=== PATIENT | male | born 1960 | race Caucasian/White ===

== ENCOUNTER 2022-10-07 19:30 | Emergency (ER) | payer MEDICARE, SELFPAY ==
--- NOTE | ~2022-10-07 | XR_ITS ---
EXAMINATION: XR ribs RT 2V w CXR 2V Exam Date/Time: 10/07/2022 19:53 CDT HISTORY: Fall, right lateral rib pain Comparison: None available. RESULT: Lines, tubes, and devices: Bilateral shoulder arthroplasties. Lungs and pleura: Bibasilar scar/atelectasis, otherwise clear. Azygos lobe. Cardiothymic silhouette: Stable. Other: No acute osseous or upper abdominal finding. IMPRESSION: No acute cardiopulmonary process. No acute osseous finding in the right ribs. Reviewed, dictated and finalized at location K.
--- NOTE | ~2022-10-07 | XR_ITS ---
EXAM: XR shoulder RT min 2V DATE: 10/07/2022 20:03 HISTORY: Fall, right shoulder pain . COMPARISON: None available. FINDINGS: Normal mineralization. Right shoulder arthroplasty, no hardware fracture or perihardware l ucency. Punctate metallic debris projecting over the inferior capsule likely post surgical debris. No fracture or dislocation. No lytic or blastic lesion. 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 No erosion or periosteal change. Soft tissues within normal limits. IMPRESSION: No acute osseous finding or hardware related complication in the right shoulder. Reviewed, dictated and finalized at location K. IMPRESSION: No acute osseous finding or hardware related complication in the ri ght shoulder.
[2022-10-07 20:17] VITALS: BP 173/96; PULSE 84; RESP 16; TEMP 36.4; O2SAT 100
[2022-10-07] MEDS: IBUPROFEN 400 MG TABLET 800 MG PO (23:03)
[2022-10-07] MEDS: methocarbamoL 750 MG TABLET 1500 MG PO (23:04)
[2022-10-07] MEDS: HYDROcodone/acetaminophen (*CRX) 5-325 MG TABLET 2 TAB PO (23:04)
--- NOTE | 2022-10-07 23:52 | ED.GENADULT ---
HPI - General Adult General Chief complaint: Fall Stated complaint: fall, right rib and right arm pain Time Seen by Provider: 10/07/22 21:48 History of Present Illness HPI narrative: This is a 62-year-old male with history of multiple shoulder replacements presenting ED after a fall. Patient was walking to his bathroom when he slipped and fell landing on the side of his tub. He landed on his right ribcage and right shoulder. Since then he has had pain over the rib cage and pain with deep inspirations. He does not feel short of breath. He also has pain on the right shoulder. He has had multiple reconstructive surgeries on that shoulder. He has not taken anything for pain control. No head injuries. Related Data Allergies Allergy/AdvReac Type Severity Reaction Status Date / Time No Known Allergies Allergy Verified 10/07/22 19:30 Exam Narrative: APPEARANCE: No apparent distress. Head: atraumatic. EYES: EOMI, NOSE: Atraumatic NECK: Trachea midline RESPIRATORY: No increased rate of breathing CARDIOVASCULAR: RRR, ABDOMINAL: Non-distended MUSCULOSKELETAl: Focal exam of the right upper extremity revealed no deformities or bruising. Radial and Ulnar pulses are intact. Cap refill <2 seconds. Radial/ulnar/medium nerve function intact. NEURO: Alert. Moving 4/4 extremities SKIN:: Warm, dry. Normal color PSYCHIATRIC: Normal affect Course Vital Signs Vital signs: Vital Signs Temperature 97.6 F 10/07/22 20:17 Pulse Rate 84 10/07/22 20:17 Respiratory Rate 16 10/07/22 20:17 Blood Pressure 173/96 H 10/07/22 20:17 Pulse Oximetry 100 10/07/22 20:17 Oxygen Delivery Room Air 10/07/22 20:17 Temperature 97.6 F 10/07/22 20:17 Pulse Rate 84 10/07/22 20:17 Respiratory Rate 16 10/07/22 20:17 Blood Pressure 173/96 H 10/07/22 20:17 Pulse Oximetry 100 10/07/22 20:17 Oxygen Delivery Room Air 10/07/22 20:17 Medical Decision Making [facility] Narrative Medical decision making narrative: -Presentation: 62-year-old male presenting with right shoulder and right rib pain after fall. 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 X-ray of the right shoulder showed previous hardware but no evidence of acute osseous injury. Dx tests considered but not ordered: -Procedures: -Interventions: Atkinson 5 mg x 2, Motrin, Robaxin -Shared decision making / Disposition: upon re-evaluation patient was feeling better. He will be discharged with pain medication and incentive spirometer. He will be given return precautions. -RX Motrin, Tylenol, Robaxin Vital Signs Vital Signs: Vital Signs Temperature 97.6 F 10/07/22 20:17 Pulse Rate 84 10/07/22 20:17 Respiratory Rate 16 10/07/22 20:17 Blood Pressure 173/96 H 10/07/22 20:17 Pulse Oximetry 100 10/07/22 20:17 Oxygen Delivery Room Air 10/07/22 20:17 Temperature 97.6 F 10/07/22 20:17 Pulse Rate 84 10/07/22 20:17 Respiratory Rate 16 10/07/22 20:17 Blood Pressure 173/96 H 10/07/22 20:17 Pulse Oximetry 100 10/07/22 20:17 Oxygen Delivery Room Air 10/07/22 20:17 Discharge Plan Discharge Clinical Impression: Injury of shoulder, Contusion of rib Patient Disposition: Home, Self-Care Condition: Stable Instructions: Antibiotic Form, Shoulder Pain (ED), Rib Contusion (ED) Additional Instructions: You were seen in the emergency department after a fall. You have bruises on your ribs and shoulders Pleas
[2022-10-08 00:20] VITALS: BP 170/100; PULSE 83; RESP 18
== END 2022-10-08 00:21 | disposition home or self-care (01) ==
PROVIDERS: Emergency Provider Emergency Medicine; PCP Internal Medicine
DX: S20.211A Contusion of right front wall of thorax, initial encounter (principal); S49.91XA Unspecified injury of right shoulder and upper arm, initial encounter; W01.198A Fall on same level from slipping, tripping and stumbling with subsequent striking against other object, initial encounter
CPT/HCPCS: 71046; 71100; 73030; 99283; 99284; A9270

== ENCOUNTER 2025-02-24 20:09 | Emergency (ER) | payer MEDICARE, MEDICAID, SELFPAY ==
--- OUTSIDE RECORDS SUMMARY | 2025-02-22 20:52 | XMS_ITS | Encounter Summary ---
Author Organization [facility] Address [address] [place] [address] Care Team Providers Care Double End Sewer Name Role Phone Foreign Oh MD Unavailable [phone] Ghanshyam Nelson MD Primary Care Provider Reason for Visit * Reason Comments Imaging Pt BIBSelf for imagi ng/wrapping of LLE. Pt is s/p surgery of LLE for fracture 3 weeks ago and states he got it wet in shower. His home health nurse spoke to who wants him to have imaging and re-wrap done. Pt has no other complaint att. He presents A&O4, in WC, and on RA. Encounter Details Date Type Department Care Team (Late st Contact Info) Description 02/22/2025 8:52 PM CDT - 02/23/2025 12:02 AM CDT Emergency [facility] EMERGENCY DEPARTMENT [address] [place] [id number] Left leg pain Discharge Disposition: Left Against Medical Advice/Discontinued Care Social History Tobacco Use Types Packs/Day Years Used Date Smoking Tobacco: Every Day Cigarettes 0.5 40 Smokeless Tobacco: Never Alcohol Use Standard Drinks/Week Comments Yes 0 (1 standard drink = 0.6 oz pur e alcohol) occ OASIS D0700: Social Isolation Answer Da te Recorded Frequency of experiencing loneliness or isolatio n Never 08/26/2023 OASIS A1250: Transportation Answer Date Recorded Lack of Transportation (Medical) No 08/26/2023 Lack of Transportation (Non-Medical) No 08/26/2023 Patient Unable or Declines to Respond No 08/26/2023 OASIS B1300: Health Literacy Answer Morris e Recorded Frequency of needing help to read materials from doctor or pharmacy Never 08/26/2023 AUDIT-C Answer Date Recorded Q1: How often do you have a drink containing alc ohol? Monthly or less 01/31/2025 Q2: How many drinks containi ng alcohol do you have on a typical day when you are drinking? 1 or 2 01/31/2025 Q3: How often do you have si x or more drinks on one occasion? Never 01/31/2025 Overall Financial Resource Strain (CARDIA) Answe r Date Recorded How hard is it for you to pa y for the very basics like food, housing, medical care, and heating? Somewhat hard 01/31/2025 [facility] Occupat ional [facility] - Occupational Stress Questionnaire Answer Date Recorded Do you feel stress - tense, restless, nervous, or anxious, or unable to sleep at night because your mind is troubled all the time - these days? Only a little 01/31/2025 Hunger Vital Sign Answer Date Recorded Within the past 12 months, y ou worried that your food would run out before you got the money to buy more. Never true 02/01/20 Within the past 12 months, t he food you bought just didn't last and you didn't have money to get more. Never true 01/31/2025 PRAPARE - Transportation Answer Date Re corded In the past 12 months, has l ack of transportation kept you from medical appointments or from getting medications? No 01/08 In the past 12 months, has l ack of transportation kept you from meetings, work, or from getting things needed for daily living? No 01/31/2025 Housing Stability Vital Sign Answer Morris e Recorded In the last 12 months, was t here a time when you were not able to pay the mortgage or rent on time? No 07/26/2023 In the last 12 months, how many places have you lived? 1 07/26/2023 In the last 12 months, was t here a time when you did not have a steady place to sleep or slept in a usp (including now)? No 07/26/2023 Housing Stability Vital Sign Answer Morris e Recorded In the last 12 months, was t here a time when you were not able to pay the mortgage or rent on time? No 01/31/2025 In the past 12 months, how m any times have you moved where you were living? 0 01/31/2025 At any time in the past 12 m [facility], were you homeless or living in a usp (including now)? 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 Answer Date of Assessment Author No 01/31/2025 5:14 AM CDT Marleen Reveles RN * Is person blind or have serious difficulty seeing? Answer Date of Assessment Author No 01/31/2025 5:14 AM CDT Marleen Reveles RN * Does person have serious difficulty walking/climbing stairs? Answer Date of Assessment Author Yes 01/31/2025 5:14 AM CDT Marleen Reveles RN * Does person have difficulty dressing/bathing? Answer Date of Assessment Author No 01/31/2025 5:14 AM CDT Marleen Reveles RN * Does person have difficulty doing errands alone? Answer Date of Assessment Author No 01/31/2025 5:14 AM CDT Marleen Reveles RN documented as of this encounter Mental Status * Does person have difficulty concentrating/remembering/making decisions? Answer Entry Date Author No 01/31/2025 5:14 AM CDT Marleen Reveles RN documented in this encounter Medications at Time of Discharge acetaminophen (Tylenol) 500 MG tablet Take 1 (one) tablet to 2 (two) tablets by mouth every 6 hours as needed for Fever or Pain Maximum allowable Acetaminophen amount = 4 Grams (4000 mg) / 24 hours. 100 tablet 2 08/14/2023 amLODIPine (Norvasc) 5 MG tabletIndication s:Hypertension, unspecified type Take 1 (one) tablet by mouth once daily for 90 days 30 tablet 2 02/21/2025 apixaban (Eliquis) 2.5 MG tablet Take 1 (one) tablet by mouth 2 times daily for 35 days 02/04/2025 losartan (Cozaar) 50 MG tablet Take 1 (one) tablet by mouth once daily 30 tablet 2 08/06/2023 methocarbamol (Robaxin) 750 MG tablet Take 1 (one) tablet by mouth every 8 hours as needed for Muscle Spasms 12 tablet 03/31/2024 oxyCODONE, immediate release, (Roxicodone) 5 MG tabletIndication s:Acute Pain Take 1 (one) tablet by mouth every 4 hours as needed Reasons: Acute Pain 12 tablet 02/21/2025 tamsulosin (Flomax) 0.4 MG capsule Take 1 (one) capsule by mouth once daily At the same time every day after a meal. traZODone (Desyrel) 50 MG tablet Take 1 (one) tablet by mouth once daily as needed vitamin D3 (Cholecalciferol ) 25 MCG (1000 UNITS) tablet Take 2 (two) tablets by mouth once daily 02/05/2025 documented as of this encounter ED Notes * Sylvester Urbano - 02/22/2025 8:50 PM CDT Pt came to triage saying he wants to leave due to wait times. AMA form signed and uploaded. * Marsha Rivera PA-C - 02/22/2025 7:23 PM CDT Medical Screening Exam 02/22/2025 7:23 PM Provider contact with the patient Balbir Chua CC: Imaging (Pt BIBSelf for imaging/wrapping of LLE. Pt is s/p surgery of LLE for fracture 3 weeks ago and states he got it wet in shower. His home health nurse spoke to who wants him to have imaging and re-wrap done. Pt has no other complaint att. He presents A&O4, in WC, and on RA. ) Chief complaint narrative was entered by triage nurse, not by provider Provider in Triage HPI: Balbir Chua is a 64 year old male PMH as noted below who presents with need for imaging. Patient had previous left tib-fib fracture 3 weeks ago and states earlier today hegot his dressing wet while taking a shower. He was told to come to the ER for further evaluation. Denies any new injury or trauma. Denies any new or worsening pain or symptoms. Limited Chart History: Past Medical History[1] Past Surgical History[2] Medications[3] Allergies[4] PCP: Ghanshyam Nelson MD (Above may be pending completion) Primary System Noted in HPI. All other systems reviewed and are negative. Vital Signs reviewed in Triage BP 146/94 (BP Location: Left arm, Patient Position: Sitting) Pulse 93 Temp 98.8 ??F (37.1 ??C) (Temporal) Resp 16 SpO2 97% Pertinent Physical Findings: Constitutional: vitals as above, No acute distress, nontoxic Head: normocephalic, without trauma Eyes:conjunctiva clear ENT: no rhinorrhea Neck: neck supple, Resp: respirations even and unlabored CV: Heart RRR Abd: Soft, Nontender Skin: warm, dry, color normal for ethnicity MSK: in wheelchair, left lower extremity in Har[place] wrap and cast Neuro: A&O x 3, , Speech clear and appropriate Psych: Normal affect; oriented to time, place and person Complete physical exam is limited due to patient sitting in up right position in chair MDM: I have reviewed the lab and imaging resulted ordered during this visit and available at the time ofthis note. Triage notes and available nursing notes reviewed. Previous medical record reviewed whenavailable. Management options include but not limited to: physical exam, laboratory testing, discussion with other providers. Clinical Impression: 1. Imaging Based on the Medical Screening Exam performed and diagnostic tests at this time, further evaluationis indicated and will be performed. Patient will be transferred to a main ED room when one is available and care will be transferred to ER provider. Marsha Rivera PA-C [1] Past Medical History: Diagnosis Date Chronic low back pain Enlarged prostate Essential (primary) hypertension Essential hypertension Neuropathy feet [2] Past Surgical History: Procedure Laterality Date Back Surgery DEBRIDEMENT Left 01/31/2025 Left; IRRIGATION/DEBRIDEMENT OPEN TIBIA OTHER SURGERY neck surgery SHOULDER PROCEDURE/SURGERY Bilateral Thoracotomy Left 07/29/2023 Left; Left Thoracotomy, Left Chest Hernia Repair Thoracotomy N/A 03/30/2024 N/A; LEFT INTERCOSTAL HERNIA REPAIR VIA THORACOTOMY TIBIAL SHAFT FRACTURE REPAIR WITH JAGUAR Left 01/31/2025 Left; INTRAMEDULLARY (IM) NAILING TIBIA [3] No current facility-administered medications for this encounter. Current Outpatient Medications Medication Sig Dispense Refill acetaminophen (Tylenol) 500 MG tablet Take 1 (one) tablet to 2 (two) tablets by mouth every 6 hoursas needed for Fever or Pain Maximum allowable Acetaminophen amount = 4 Grams (4000 mg) / 24 hours. 100 tablet 2 amLODIPine (Norvasc) 5 MG tablet Take 1 (one) tablet by mouth once daily for 90 days 30 tablet 2 apixaban (Eliquis) 2.5 MG tablet Take 1 (one) tablet by mouth 2 times daily for 35 days losartan (Cozaar) 50 MG tablet Take 1 (one) tablet by mouth once daily 30 tablet 2 methocarbamol (Robaxin) 750 MG tablet Take 1 (one) tablet by mouth every 8 hours as needed for Muscle Spasms 12 tablet 0 oxyCODONE, immediate release, (Roxicodone) 5 MG tablet Take 1 (one) tablet by mouth every 4 hours as needed Reasons: Acute Pain 12 tablet 0 tamsulosin (Flomax) 0.4 MG capsule Take 1 (one) capsule by mouth once daily At the same time every day after a meal. traZODone (Desyrel) 50 MG tablet Take 1 (one) tablet by mouth once daily as needed vitamin D3 (Cholecalciferol) 25 MCG (1000 UNITS) tablet Take 2 (two) tablets by mouth once daily [4] No Known Allergies * Mavis Nascimento RN - 02/22/2025 7:21 PM CDT Pt BIBSelf for imaging/wrapping of LLE. Pt is s/p surgery of LLE for fracture 3 weeks ago and states he got it wet in shower. His home health nurse spoke to DR who wants him to have imaging and re-wrap done. Pt has no other complaint att. He presents A&O4, in WC, and on RA. Past Medical History[1] [1] Past Medical History: Diagnosis Date Chronic low back pain Enlarged prostate Essential (primary) hypertension Essential hypertension Neuropathy feet documented in this encounter Plan of Treatment Upcoming Encounters Date Type Department Care Team (Late st Contact Info) Description 03/22/2025 9:15 AM CDT Office Visit [facility] - Orthopedics [address] [place] [address], [place] [id number] Leonel Barron, [address] [place] [address] [place] [address] documented as of this encounter Procedures Procedure Name Priority Date/Time Associated Diagnosis Comments XR TIBIA FIBULA LEFT 2VW STAT 02/22/2025 7:57 PM CDT Left leg pain documented in this encounter Results * XR TIBIA FIBULA LEFT 2VW (02/22/2025 7:57 PM CDT) Anatomical Region Laterality Modality Lower Extremity Digital Radiogra phy 02/22/2025 8:06 PM CDT Narrative 02/22/2025 9:38 PM CDT PROCEDURE: XR TIBIA FIBULA LEFT 2VW, DATE/TIME OF EXAM: 02/22/2025 7:57 PM, LOCATION [facility] INDICATION: M79.605: Left leg pain ADDITIONAL CLINICAL INFORMATION: Ordering Provider Reason For Exam: ro fx vs other Technologist Note: Additional: COMPARISON: Tibia-fibula radiographs 01/30/2025 FINDINGS/impression: Overlying cast obscures soft tissue detail. Intramedullary nail is visualized in the tibia with improved fracture fragment alignment from prior. Hardware appears intact. Unchanged alignment of displaced left fibular diaphyses fracture. No acute fractures identified. Report dictated by Eileen Pate MD, MD (administration vice president). > Dictated by Eileen Pate MD 02/22/2025 8:06 PM > Dictated by Perinatal Nurse IKalyn MD have personally reviewed and interpreted this examination/study. > Interpreting Provider: Kalyn Evangelista MD on 02/22/2025 9:38 PM Procedure Note Kalyn Evangelista MD - 02/22/2025 PROCEDURE: XR TIBIA FIBULA LEFT 2VW, DATE/TIME OF EXAM: 02/22/2025 7:57 PM, LOCATION [facility] INDICATION: M79.605: Left leg pain ADDITIONAL CLINICAL INFORMATION: Ordering Provider Reason For Exam: ro fx vs other Technologist Note: Additional: COMPARISON: Tibia-fibula radiographs 01/30/2025 FINDINGS/impression: Overlying cast obscures soft tissue detail. Intramedullary nail is visualized in the tibia with improved fracture fragment alignment from prior. Hardware appears intact. Unchangedalignment of displaced left fibular diaphyses fracture. No acute fractures identified. Report dictated by Eileen Pate MD, MD (administration vice president). > Dictated by Eileen Pate MD 02/22/2025 8:06 PM > Dictated by Perinatal Nurse Kalyn Gastelum MD have personally reviewed and interpreted this examination/study. > Interpreting Provider: Kalyn Evangelista MD on 59:38 PM Marsha Rivera PA-C DIAGNOSTIC IMAGING ORDERABL ES Final Result documented in this encounter Visit Diagnoses Diagnosis Left leg pain Pain in limb documented in this encounter Care Teams Double End Sewer Relationship Specialty Start Date End Date Ghanshyam Nelson MD [address] [facility] [address] [place] [phone] PCP - General Internal Medicine 02/21/25 Foreign Oh MD [address] [place] [address] Internal Medicine 01/24/25 documented as of this encounter
--- NOTE | ~2025-02-24 | XR_ITS ---
EXAMINATION: XR tibia fibula LT 2V DATE: 02/25/2025 00:22 INDICATION: Splinter revision needed post recent tibial fracture TECHNIQUE: Anteroposterior and lateral views of the left tibia and fibula were obtained. COMPARISON: None. FINDINGS: Antegrade intramedullary deion with proximal and distal interlocking screw fixation of the left tibia spanning a transverse fracture of the junction mid to distal diaphysis. There is an additional plain screw fixation along the anterior cortex. Alignment appears near-anatomic aside from displacement of a couple small bone fragment arising from a defect along the posterior cortex. There is an additional mildly comminuted fractures of the distal fibular diaphysis with one half shaft width anterior and medial displacement. No other fractures identified. Joint space at the left knee, ankle and visualized mid and hindfoot appear relatively preserved. Small Achilles calcaneal spur. Splinting material on the posterolateral aspect of the left calf and ankle. IMPRESSION: 1. Near-anatomic alignment of internally fixed fracture of the mid to distal left tibial diaphysis. 2. One half shaft width anteromedial displacement of an en face 6 distal diaphyseal fracture of the left fibula. Reviewed, dictated and finalized at location A. IMPRESSION: 1. Near-anatomic alignment of internally fixed fracture of the mid to distal le ft tibial diaphysis. 2. One half shaft width anteromedial displacement of an en face 6 distal diaphy seal fracture of the left fibula.
--- OUTSIDE RECORDS SUMMARY | 2025-02-24 20:13 | XMS_ITS | Clinical Summary ---
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
--- OUTSIDE RECORDS SUMMARY | 2025-02-24 20:13 | XMS_ITS | Clinical Summary ---
Author Organization [facility] Address [address] [place] [address] Care Team Providers Care Mine Environmental Engineer Name Role Phone Unavailable Primary Care Provider Unavailabl e Allergies No known active allergies Medications albuterol HFA (PROVENTIL HFA;VENTOLIN HFA) 90 mcg/actuation inhaler Inhale 2 puffs every 4 (four) hours if needed. 07/23/2023 Active naproxen (NAPROSYN) 500 mg tablet Take 500 mg by mouth in the morning and 500 mg in the evening. Take with meals. 07/23/2023 Active losartan (COZAAR) 50 mg tablet Take 50 mg by mouth 1 (one) time each day. 08/06/2023 Active Active Problems Problem Noted Date Diagnosed Date Chronic back pain 07/26/2023 Hypertension 07/26/2023 Hypophosphatemia 07/26/2023 Tobacco use 07/26/2023 Herniation of left lung 07/25/2023 Social History Tobacco Use Types Packs/Day Years Used Date Smoking Tobacco: Never Assessed Sex and Gender Information Value Date Recorded Sex Assigned at Not on file Legal Sex Male 12:06 PM PDT Gender Identity Not on file Sexual Orientation Not on file Last Filed Vital Signs Vital Sign Reading Time Taken Comments Blood Pressure 160/99 10/14/2023 11:54 AM CDT Pulse - - Temperature - - Respiratory Rate - - Oxygen Saturation - - Inhaled Oxygen Concentration - - Weight - - Height - - Body Mass Index - - Plan of Treatment Health Maintenance Due Date Last Done Comments Dental Oral Exam 1959 Dental Prophylaxis 1959 Dental X-Ray: Bitewings 1959 Dental X-Ray: Full Mouth 1959 Dental X-Ray: Panoramic 10/14/2026 10/14/2023, 02/12 FIT-DNA Discontinued 10/13/2022 Procedures Procedure Name Priority Date/Time Associated Diagnosis Comments PANORAMIC RADIOGRAPHIC IMAGE Routine 02/12/2023 2:45 PM CDT from Last 3 Months or Most Recently Relevant to Health Maintenance [place] [address]
--- OUTSIDE RECORDS SUMMARY | 2025-02-24 20:13 | XMS_ITS | Clinical Summary ---
Author Organization [facility] Address [address] [place] [address] Care Team Providers Care Forepart Reducer Name Role Phone Unavailable Primary Care Provider Unavailabl e Allergies No known active allergies Medications amLODIPine (NORVASC) 5 MG tablet Take 1 tablet (5 mg total) by mouth in the morning. 30 tablet 5 Active apixaban (ELIQUIS) 2.5 MG tablet tabletIndication s:Deep Vein Thrombosis Prophylaxis Take 1 tablet (2.5 mg total) by mouth in the morning and 1 tablet (2.5 mg total) before bedtime. Do all this for 55 doses. Indications: Treatment to Prevent Deep Vein Thrombosis. 55 tablet 5 03/12/20 25 Active cholecalciferol (VITAMIN D3) 25 MCG (1000 UT) tablet Take 2 tablets (2,000 Units total) by mouth in the morning. 60 tablet 5 Active losartan (COZAAR) 25 MG tablet Take 1 tablet (25 mg total) by mouth in the morning. 30 tablet 5 Active methocarbamol (ROBAXIN) 500 MG tablet Take 1 tablet (500 mg total) by mouth 3 (three) times a day as needed for muscle spasms. 30 tablet 5 Active nicotine (NICODERM CQ) 14 MG/24HR Place 1 patch (14 mg total) on the skin daily as needed (nicotine withdrawal). 5 Active polyethylene glycol (MIRALAX) 17 g packet Take 17 g by mouth in the morning and 17 g before bedtime. 5 Active tamsulosin (FLOMAX) 0.4 MG capsule Take 1 capsule (0.4 mg total) by mouth After Breakfast. 30 capsule 5 Active traZODone (DESYREL) 50 MG tablet Take 1 tablet (50 mg total) by mouth nightly. 30 tablet 5 Active oxyCODONE (ROXICODONE) 5 MG immediate release tabletIndication s:Acute Pain Take 1 tablet (5 mg total) by mouth every 6 (six) hours as needed for moderate pain (second line for moderate pain) for up to 7 days Indications: Acute Pain. Max Daily Amount: 20 mg 28 tablet 5 02/19/20 25 Active Problems Problem Noted Date Diagnosed Date Traumatic injury 02/04/2025 Encounters Date Type Department Care Team Description 02/09/2025 Plan of Care Documentation [address] [address] 02/04/2025 5:26 PM CDT - 02/12/2025 12:19 PM CDT Hospital Encounter [address] [address] Kamran Barfield MD Traumatic injury <Subsequent> (Primary Dx) Discharge Disposition: Home under care of Home Health Org from Last 3 Months Social History Tobacco Use Types Packs/Day Years Used Date Smoking Tobacco: Every Day Cigarettes Tobacco Cessation:Ready to Q uit: Not Asked; Counseling Given: Not Answered Alcohol Use Standard Drinks/Week Comments Not Asked 0 (1 standard drink = 0.6 oz pur e alcohol) [facility] Utilities Answer Date Recorded In the past 12 months has [employer], or water [employer] threatened to shut off services in your home? No 02/06/2025 Social Connection and Isolat ion Panel [NHANES] Answer Date Recorded In a typical week, how many times do you talk on the phone with family, friends, or neighbors? More than three times a week 02/06/2025 How often do you get togethe r with friends or relatives? More than three times a week 02/06/2025 How often do you attend [facility] or rastafarian services? Never 02/06/2025 Do you belong to any clubs o r organizations such as confucianist groups, unions, fraternal or athletic groups, or school groups? No 02/06/2025 How often do you attend meet ings of the clubs or organizations you belong to? Never 02/06/2025 Are you , , di vorced, , never , or living with a partner? Never 02/06/2025 Overall Financial Resource Strain (CARDIA) Answe r Date Recorded How hard is it for you to pa y for the very basics like food, housing, medical care, and heating? Not hard at all 02/06/2025 [facility] - Occupational Stress Questionnaire Answer Date Recorded Do you feel stress - tense, restless, nervous, or anxious, or unable to sleep at night because your mind is troubled all the time - these days? Not at all 02/12/2025 Hunger Vital Sign Answer Date Recorded Within the past 12 months, y ou worried that your food would run out before you got the money to buy more. Never true 02/07/20 25 Within the past 12 months, t he food you bought just didn't last and you didn't have money to get more. Never true 02/06/2025 Housing Stability Vital Sign Answer Morris e Recorded In the last 12 months, was t here a time when you were not able to pay the mortgage or rent on time? No 02/06/2025 In the past 12 months, how m any times have you moved where you were living? 0 02/06/2025 At any time in the past 12 m onths, were you homeless or living in a fci (including now)? No 02/06/2025 Domestic Abuse Assessment Answer Date R ecorded Do you feel safe in your relationships at home? Yes 02/04/2025 Physical Abuse Denies 02/04/2025 HRSN Domestic Abuse - Type of Abuse Not on file 02/04/2025 HRSN Domestic Abuse - Time Frame Not on file 02/04/2025 HRSN Domestic Abuse - Signs and Symptoms Not on file 02/04/2025 Verbal Abuse Denies 02/04/2025 HRSN Domestic Abuse - Reported To Not on file 02/04/2025 SM SDOH Transportation Source Answer Da te Recorded Has lack of transportation k ept you from medical appointments or from getting medications? No 02/10/2025 Has lack of transportation k ept you from meetings, work, or from getting things needed for daily living? No 02/10/2025 HRSN Depression PHQ-2 Answer Date Recor ded Feeling down, depressed, or hopeless 0 02/12/2025 Little interest or pleasure in doing things 00 02/12/2025 Sex and Gender Information Value Date Recorded Sex Assigned at Not on file Legal Sex Male 11:43 AM EDT Gender Identity Not on file Sexual Orientation Not on file Last Filed Vital Signs Vital Sign Reading Time Taken Comments Blood Pressure 132/86 02/12/2025 8:14 AM CDT Pulse 70 02/12/2025 8:14 AM CDT Temperature 36.7 C (98.1 F) 02/12/2025 8:14 AM CDT Respiratory Rate 18 02/12/2025 8:14 AM CDT Oxygen Saturation 95% 02/12/2025 8:14 AM CDT Inhaled Oxygen Concentration - - Weight 108.9 kg (240 lb) 02/04/2025 7:39 PM CDT Height 188 cm (6' 2) 02/04/2025 7:39 PM CDT Body Mass Index 30.81 02/04/2025 7:39 PM CDT Plan of Treatment Health Maintenance Due Date Last Done Comments CT Colonography 1959 Colonoscopy 1959 Colorectal Cancer Screening 1959 FIT-DNA (Cologuard) 1959 FIT 1959 FOBT 1959 Sigmoidoscopy 1959 Annual Visit Topic 1960 MMR Vaccines (1 of 1 - Stand jeannnie series) 1960 Hepatitis C Screening 1977 Pneumococcal Vaccine: 65+ Ye ars (1 of 4 - PCV) 1978 PSA Test 2014 Abdominal Aortic Aneurysm (A AA) Screening 2024 DTaP/Tdap/Td Vaccines (2 - T d or Tdap) 01/30/2035 01/30/2025 HIB Vaccines Aged Out No longer eligi ble based on patient's age to complete this topic HPV Vaccines Aged Out No longer eligi ble based on patient's age to complete this topic Hepatitis A Vaccines Aged Out No long er eligible based on patient's age to complete this topic Hepatitis B Vaccines Aged Out No long er eligible based on patient's age to complete this topic IPV Vaccines Aged Out No longer eligi ble based on patient's age to complete this topic Meningococcal Vaccine Aged Out No oliva rae eligible based on patient's age to complete this topic Procedures Procedure Name Priority Date/Time Associated Diagnosis Comments XR ABDOMEN 1 VW Routine 02/07/2025 9:58 PM CDT URINALYSIS WITH REFLEX TO CULTURE Routine 02/04/2025 11:07 PM CDT XR CHEST 1 VW Routine 02/04/2025 10:42 PM CDT BLOOD CULTURE Routine 02/04/2025 9:50 PM CDT BASIC METABOLIC PANEL STAT 02/04/2025 9:44 PM CDT CBC WITH AUTO DIFFERENTIAL STAT 02/04/2025 9:44 PM CDT BLOOD CULTURE Routine 02/04/2025 9:44 PM CDT WOUND OSTOMY EVAL AND TREAT Routine 02/04/2025 7:25 PM CDT from Last 3 Months Results * XR abdomen 1 vws (02/07/2025 9:58 PM CDT) Anatomical Region Laterality Modality Body Computed Radiogr aphy Narrative 02/08/2025 8:21 AM CDT NARRATIVE: PROCEDURE: XR ABDOMEN KUB DATE/TIME OF EXAM: 02/07/2025 9:58 PM INDICATION: constipation. 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 There is levoscoliosis noted. No acute fracture or dislocation is seen. Multiple calcific densities are seen in the left abdomen which may represent renal stones or other soft tissue calcification. CT could be obtained. Large amount of stool seen in the colon. Correlation for underlying constipation. Edited by Lashell Varela on 02/08/2025 8:20 AM > Interpreting Provider: Fish Mijares MD on 02/08/2025 8:21 AM Procedure Note System, Provider Not In - 02/08/2025 NARRATIVE: PROCEDURE: XR ABDOMEN KUB DATE/TIME OF EXAM: 02/07/2025 9:58 PM INDICATION: constipation. 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 There is levoscoliosis noted. No acute fracture or dislocation is seen. Multiple calcific densities are seen in the left abdomen which may represent renal stones or other soft tissue calcification. CT could be obtained. Large amount of stool seen in the colon. Correlation for underlying constipation. Edited by Lashell Varela on 02/08/2025 8:20 AM > Interpreting Provider: Fish Mijares MD on 02/08/2025 8:21 AM David Mc MD IMG DIAGNOSTIC IMAGING ORDERABLE S Final Result * (ABNORMAL) Urinalysis with reflex to culture (02/04/2025 11:07 PM CDT) Color, Urine Yellow Yellow, Straw [facility] Clarity, Urine Turbid(A) Clear [facility] Glucose, Ur Normal Normal [facility] Bilirubin Urine Negative Negative [facility] Ketones, urine Negative Negative [facility] Specific gravity 1.013 1.005 - 1.030 [facility] RBC, UA Negative Negative [facility] pH, Urine 7.0 5.0 - 8.0 [facility] Protein, Ur Negative Negative [facility] Urobilinogen, Urine Normal Normal mg/dL [facility] NITRITE Negative Negative [facility] Urine Leukocyte Esterase Negative Negative [facility] REFLEX STATUS Culture not indicated [facility] Urine Microscopy UA Urine microscopy not indicated [facility] Urine 02/04/2025 11:0 7 PM CDT 02/04/2025 11:21 PM CDT Narrative [facility] - 02/04/2025 11:39 PM CDT 101F- Temp Indications->Fever > 100.4F David Mc MD LAB URINE ORDERABLES Final Resul t [facility] [address] [place] [address] * XR chest 1 vws (02/04/2025 10:42 PM CDT) Anatomical Region Laterality Modality Body Computed Radiogr aphy Narrative 02/05/2025 8:55 AM CDT NARRATIVE: PROCEDURE: XR CHEST 1VW PORTABLE DATE/TIME OF EXAM: 02/04/2025 10:42 PM CLINICAL INFORMATION: None relevant/not provided if blank. Indication: Temp- 101F Additional History: Findings/impression: No focal consolidation is seen. Upper mediastinal contours appear somewhat prominent but stable when compared with prior study. CT could be obtained for further evaluation if warranted. No pleural effusion or pneumothorax seen. Bilateral shoulder arthroplasties noted. Heart is slightly prominent likely related to AP projection. > Interpreting Provider: Fish Mijares MD on 02/05/2025 8:55 AM Procedure Note System, Provider Not In - 02/05/2025 NARRATIVE: PROCEDURE: XR CHEST 1VW PORTABLE DATE/TIME OF EXAM: 02/04/2025 10:42 PM CLINICAL INFORMATION: None relevant/not provided if blank. Indication: Temp- 101F Additional History: Findings/impression: No focal consolidation is seen. Upper mediastinal contours appear somewhat prominent but stable when compared with prior study. CT could be obtained for further evaluation if warranted. Nopleural effusion or pneumothorax seen. Bilateral shoulder arthroplasties noted. Heart is slightly prominent likely related to AP projection. > Interpreting Provider: Fish Mijares MD on 02/05/2025 8:55 AM us David Mc MD IMG DIAGNOSTIC IMAGING ORDERABLE S Final Result * SINGLE Blood Culture (02/04/2025 9:50 PM CDT) Only the most recent of2 resultswithin the time period is included. Culture No growth day 5 [facility]CRO[facility] Blood (Blood, Venous) 02/04/2025 9:50 PM CDT 02/05/2025 1:19 AM CDT Narrative [facility] - 02/10/2025 1:31 AM CDT Indications:->Fever > 100.4 F us David Mc MD LAB MICROBIOLOGY - GENERAL ORDER CASE Final Result [facility] [address] [place] [address] * (ABNORMAL) CBC WITH AUTO DIFFERENTIAL (02/04/2025 9:44 PM CDT) [facility] WBC 9.7 4.0 - 10.7 x10E9/L [facility] RBC 4.03(L) 4.30 - 5.80 x10E12/L [facility] HGB gm/dL Blood 13.0(L) 13.3 - 17.5 g/dL [facility] Hematocrit 38.4(L) 38.7 - 51.1 % [facility] MCV 95.3 80.0 - 98.0 fL [facility] MCH 32.3 26.7 - 33.6 pg [facility] MCHC 33.9 31.7 - 36.3 g/dL [facility] RDW-CV 12.6 11.3 - 14.8 % [facility] Platelet count 298 150 - 420 x10E9/L [facility] MPV 10.4 7.8 - 11.4 fL [facility] Neutrophil % 69.3 41.0 - 74.0 % [facility] Lymphocyte % 17.1 17.0 - 47.0 % [facility] Monocytes, % 12.1(H) 3.0 - 11.0 % [facility] Eosinophils % 1.0 0.0 - 7.0 % [facility] Basophil Percent Automated 0.2 0.0 - 1.6 % [facility] Immature Granulocytes 0.3 0.0 - 1.0 % [facility] Neutrophils Absolute 6.70 1.60 - 7.50 x10E9/L [facility] Lymphocyte Absolute 1.65 1.00 - 4.40 x10E9/L [facility] Monocytes 1.17(H) 0.15 - 1.00 x10E9/L [facility] Eosinophil Absolute 0.10 0.00 - 0.60 x10E9/L [facility] Basophils 0.02 0.00 - 0.13 x10E9/L [facility] Blood (Blood, Venous) 02/04/2025 9:44 PM CDT 02/04/2025 11:25 PM CDT David Mc MD LAB BLOOD ORDERABLES Final Resul t Performing Organization Address [facility] de Phone Number [facility] [address] [place] [address] * (ABNORMAL) BASIC METABOLIC PANEL (02/04/2025 9:44 PM CDT) Glucose mg/dL Blood 121(H) 70 - 99 mg/dL [facility] Sodium mmol/L Blood 135(L) 136 - 145 mmol/L [facility] Potassium mmol/L Blood 4.1 3.5 - 5.1 mmol/L [facility] Chloride 104 98 - 107 mmol/L [facility] CO2 23 22 - 29 mmol/L [facility] Calcium mg/dL Blood 8.9 8.4 - 10.4 mg/dL [facility] Anion Gap Blood 8 6 - 16 mmol/L [facility] Bun mg/dL Blood 12 7 - 26 mg/dL [facility] Creatinine 0.69(L) 0.72 - 1.25 mg/dL [facility] EGFRCR CKD-EPI >90 >=90 mL/min/1.7 3 m2 [facility] Comment:Estimated Glomerular Filtration Rate (eGFR) calculated using the CKD-EPI Creatinine Equation (2020), per the National Kidney Foundation and [place] [employer]ph[employer] recommendations. Blood (Blood, Venous) 02/04/2025 9:44 PM CDT 02/04/2025 11:24 PM CDT David Mc MD LAB BLOOD ORDERABLES Final Resul t Performing Organization Address [facility] Co de Phone Number [facility] [address] [place] [address] from Last 3 Months Advance Directives * Full Resuscitation (Latest Code Status on File) Date Activated Date Inactivated Comments 02/04/2025 8:25 PM 02/12/2025 4:46 PM Question Answer Comments I have discussed this order with the patient or his/her surrogate and have received informed consent. Yes
--- OUTSIDE RECORDS SUMMARY | 2025-02-24 20:14 | XMS_ITS | Clinical Summary ---
Author Organization [facility] Address [address] [place] [address] Care Team Providers Care Grouter Helper Name Role Phone Foreign Oh MD Unavailable [phone] Ghanshyam Nelson MD Primary Care Provider Source Comments [facility],non-owned Affiliates and Associated Physician Practices is amultiple site organization consisting of ambulatory clinics and hospital sitesin [place], [place], [place] and [place]. This disclosure is being madepursuant to the Care Everywhere program and may not contain all information available regarding this patient. Last updated 18.[facility] Allergies No known active allergies Medications * Be aware that medications may not be up to date on this document. Alwaysverify current medications with the patient. losartan (Cozaar) 50 MG tablet Take 1 (one) tablet by mouth once daily 30 tablet 2 08/06/19 24 Active acetaminophen (Tylenol) 500 MG tablet Take 1 (one) tablet to 2 (two) tablets by mouth every 6 hours as needed for Fever or Pain Maximum allowable Acetaminophen amount = 4 Grams (4000 mg) / 24 hours. 100 tablet 2 08/14/19 24 Active traZODone (Desyrel) 50 MG tablet Take 1 (one) tablet by mouth once daily as needed Active methocarbamol (Robaxin) 750 MG tablet Take 1 (one) tablet by mouth every 8 hours as needed for Muscle Spasms 12 tablet 03/31/20 24 Active tamsulosin (Flomax) 0.4 MG capsule Take 1 (one) capsule by mouth once daily At the same time every day after a meal. Active apixaban (Eliquis) 2.5 MG tablet Take 1 (one) tablet by mouth 2 times daily for 35 days 02/05/20 25 Active vitamin D3 (Cholecalcifero l) 25 MCG (1000 UNITS) tablet Take 2 (two) tablets by mouth once daily 02/06/20 25 Active amLODIPine (Norvasc) 5 MG tabletIndicatio ns:Hypertension , unspecified type Take 1 (one) tablet by mouth once daily for 90 days 30 tablet 2 02/22/20 25 Active oxyCODONE, immediate release, (Roxicodone) 5 MG tabletIndicatio ns:Acute Pain Take 1 (one) tablet by mouth every 4 hours as needed Reasons: Acute Pain 12 tablet 02/22/20 25 Active albuterol HFA (Proventil; Ventolin; Proair) 108 (90 Base) MCG/ACT inhaler Inhale 2 (two) puffs by mouth every 4 hours as needed 07/23/19 24 025 Discontin ued(List Clean-Up) tamsulosin (Flomax) 0.4 MG capsule Take 1 capsule every day by oral route for 90 days. 03/17/20 24 025 Discontin ued(List Clean-Up) oxyCODONE, immediate release, (Roxicodone) 5 MG tabletIndicatio ns:Acute Pain Take 1 (one) tablet by mouth every 4 hours as needed Reasons: Acute Pain 12 tablet 03/31/20 24 025 Discontin ued(List Clean-Up) senna (Senokot) 8.6 MG tablet Take 1 (one) tablet by mouth 2 times daily 28 tablet 03/31/20 24 025 Discontin ued(List Clean-Up) gabapentin (Neurontin) 300 MG capsule Take 1 (one) capsule by mouth 3 times daily 270 capsule 1 04/16/20 Discontin ued(List Clean-Up) oxyCODONE, immediate release, (Roxicodone) 10 MG tabletIndicatio ns:Osteopenia of spine Take 1 (one) tablet by mouth every 4 hours as needed 02/05/20 025 Discontin ued(List Clean-Up) acetaminophen (Tylenol) 500 MG tablet Take 2 (two) tablets by mouth 3 times daily Maximum allowable Acetaminophen amount = 4 Grams (4000 mg) / 24 hours. 02/05/20 Discontin ued(List Clean-Up) losartan (Cozaar) 25 MG tablet Take 1 (one) tablet by mouth once daily 02/06/20 025 Discontin ued(List Clean-Up) amLODIPine (Norvasc) 5 MG tablet Take 1 (one) tablet by mouth once daily 02/06/20 Discontin ued(Reord er) polyethylene glycol 3350 (Miralax) 17 g packetIndicatio ns:Constipation Take 17 (seventeen) g by mouth once daily Reasons: Constipation 02/06/20 Discontin ued(List Clean-Up) senna (Senokot Extra Strength) 17.2 MG Take 17.2 mg by mouth once daily 02/06/20 Discontin ued(List Clean-Up) Active Problems Problem Noted Date Diagnosed Date Other constipation 02/03/2025 Assessment & Plan (02/04/2025 12:37 PM CDT): -Last BM was prior to admission Cont scheduled MiraLax and Senokot. Added milk of magnesia Added a Suppository. Assessment & Plan (02/03/2025 10:31 AM CDT): Cont scheduled MiraLax and Senokot. Added milk of magnesia Osteopenia 02/02/2025 Assessment & Plan (02/04/2025 12:37 PM CDT): -Cont Vit D supp. -OP referral to bone health clinic was placed. Assessment & Plan (02/03/2025 10:31 AM CDT): -Cont Vit D supp. -OP referral to bone health clinic was placed. Assessment & Plan (02/02/2025 7:27 AM CDT): -Cont Vit D supp. -OP referral to bone health clinic was placed. Osteopenia of multiple sites 02/02/2025 BPH (benign prostatic hyperplasia) 02/02/2025 Assessment & Plan (02/04/2025 12:37 PM CDT): -Cont Flomax Assessment & Plan (02/03/2025 10:31 AM CDT): -Cont Flomax Assessment & Plan (02/02/2025 7:27 AM CDT): -Cont Flomax Benign prostatic hyperplasia without lower urinary tract symptoms 02/02/2025 Intercostal muscle tear, subsequent encounter Hypophosphatemia 07/26/2023 Tobacco use 07/26/2023 Chronic back pain 07/26/2023 Hypertension 07/26/2023 Assessment & Plan (02/04/2025 12:37 PM CDT): Resumed Losartan Started amlodipine Assessment & Plan (02/03/2025 10:31 AM CDT): Resumed Losartan Started amlodipine Assessment & Plan (02/02/2025 7:27 AM CDT): Resumed Losartan Herniation of left lung 07/25/2023 Neuropathy Overview (02/21/2025): feet Resolved Problems Problem Noted Date Diagnosed Date Resolved Date Electrolyte disturbance 02/02/2025 08/02/2025 Assessment & Plan (02/04/2025 12:37 PM CDT): -Replete prn Assessment & Plan (02/03/2025 10:31 AM CDT): -Replete prn Assessment & Plan (02/02/2025 7:28 AM CDT): -replete prn Type I or II open fracture o f shaft of left tibia, unspecified fracture morphology, initial encounter 01/30/2025 02/04/2025 Assessment & Plan (02/04/2025 12:37 PM CDT): -S/P Left tibia/fibula I&D, IMN and ORIF on 01/31 . -Plan for dressing and splint changed today. -NWB to left LE -PTOT-> recommending acute rehab-> pending BM -Will dc on 35 days of DVT prophylaxis. -OP f.u w ortho 2 weeks after dc. Assessment & Plan (02/03/2025 10:31 AM CDT): -S/P Left tibia/fibula I&D, IMN and ORIF on 01/31 . -Plan for dressing and splint changed today. -NWB to left LE -PTOT-> recommending acute rehab-> pending auth. -Will dc on 35 days of DVT prophylaxis. -OP f.u w ortho 2 weeks after dc. Assessment & Plan (02/02/2025 11:18 AM CDT): -S/P Left tibia/fibula I&D, IMN and ORIF on 01/31 . -NWB to left LE -PTOT-> recommending acute rehab-> pending auth. -Will dc on 35 days of DVT prophylaxis. -OP f.u w ortho 2 weeks after dc. Pneumonia 07/26/2023 09/02/2023 Encounters Date Type Department Care Team Description 02/22/2025 8:52 PM CDT - 02/23/2025 12:02 AM CDT Emergency [facility] [address] [place] [address] Left leg pain Discharge Disposition: Left Against Medical Advice/Discontinued Care 02/22/2025 Travel 02/21/2025 8:30 AM CDT Office Visit Transitional Care at [address] [phone] Preston Chavez II, MD Hospital discharge follow-up (Primary Dx); Type I or II open fracture of shaft of left tibia with routine healing, unspecified fracture morphology, subsequent encounter; Type I or II open fracture of shaft of left fibula with routine healing, unspecified fracture morphology, subsequent encounter; On deep vein thrombosis (DVT) prophylaxis; Post-operative pain; Hypertension, unspecified type; Osteopenia, unspecified location; Neuropathy 02/14/2025 Travel 02/14/2025 Telephone Transitional Care at [address] [phone] Shanda Santos, talent acquisition assistant 02/10/2025 Orders Only [facility] - Orthopedics [address] [place] [address], [place] [phone] Leonel Barron DO Type I or II open fracture of shaft of left tibia, unspecified fracture morphology, initial encounter 02/04/2025 6:02 PM CDT - 02/12/2025 12:19 PM CDT Hospital Encounter [address] [address] Kamran Barfield MD General Rehabilitation Discharge Disposition: Home or Self Care 02/04/2025 5:26 PM CDT - 02/12/2025 12:19 PM CDT Hospital Encounter [address] [address] Kamran Barfield MD [facility] Discharge Disposition: Home or Self Care 01/31/2025 11:14 AM CDT Anesthesia Event [facility] [address] [place] [phone] Laura Diana MD Sembell, Evan, MD 01/31/2025 10:06 AM CDT - 01/31/2025 1:35 PM CDT Surgery [facility] [address] [place] [phone] Revak, Leonel J, DO IRRIGATION/DEBRIDEMEN T OPEN TIBIA 01/31/2025 Travel 01/30/2025 8:50 PM CDT - 02/04/2025 5:00 PM CDT Hospital Encounter [facility] [address] [place] [address] Robbi Rodriguez MD Naughton, Daniel J, MD Bitter, Cindy C, MD Heis, Farah, MD Trauma Discharge Disposition: Rehab:Inpatient from Last 3 Months Immunizations Immunization Administration Dates Next Due INFLUENZA VACCINE, TRIV. (AF LURIA, FLUZONE TRIVALENT; 6MO+) (IIV3) 07/06/2019 Covid Moderna primary monovalent 12+ yr 0.5mL ,10/06/2020 INFLUENZA VACCINE, QUADR. (F LUZONE; FLULAVAL; FLUARIX; AFLURIA QUADRIVALENT; 6MO+), 0.5 ML (IIV4) 03/09/2018 PNEUMOCOCCAL PPV VACCINE 12/21/2013 TDAP (7yrs+) 01/30/2025 Social History Tobacco Use Types Packs/Day Years Used Date Smoking Tobacco: Every Day Cigarettes 0.5 40 Smokeless Tobacco: Never Tobacco Cessation:Ready to Q uit: Not Asked; Counseling Given: Not Answered Alcohol Use Standard Drinks/Week Comments Yes 0 [...] medical care, and heating? Somewhat hard 01/31/2025 [facility] [place] [facility] Occupat ional [facility] - Occupational Stress [...] place to sleep or slept in a custodial (including now)? No 07/26/2023 Housing Stability Vital Sign Answer Morris e Recorded In the last 12 months, was t here a time when you were not able to pay the mortgage or rent on time? No 01/31/2025 In the past 12 months, how m any times have you moved where you were living? 0 01/31/2025 At any time in the [facility], were you homeless or living in a custodial (including now)? No 01/31/2025 Sex and Gender Information Value Date Recorded Sex Assigned at Not on file Legal Sex Male 6:01 AM MANAGER BODY Gender Identity Not on file Sexual Orientation Not on file Last Filed Vital Signs Vital Sign Reading Time Taken Comments Blood Pressure 146/94 02/22/2025 7:02 PM CDT Pulse 93 02/22/2025 7:02 PM CDT Temperature 37.1 C (98.8 F) 02/22/2025 7:02 PM CDT Respiratory Rate 16 02/22/2025 7:02 PM CDT Oxygen Saturation 97% 02/22/2025 7:02 PM CDT Inhaled Oxygen Concentration 35% 07/29/2023 8 :43 PM MANAGER BODY Weight 114.8 kg (253 lb) 01/30/2025 8:49 PM CDT Height 182.9 cm (6') 02/21/2025 8:19 AM CDT Body Mass Index 32.48 01/30/2025 8:49 PM CDT Plan of Treatment Upcoming Encounters Date Type Department Care Team (Late st Contact Info) Description 03/22/2025 9:15 AM CDT Office Visit [facility] - [facility]ics [address] [place] [address], [place] [phone] Leonel Barron, [address] [place] [address] [place] [address] Health Maintenance Due Date Last Done Comments COLON MONITORING 1959 COLONOSCOPY - COLON CA SCREENING 1959 CT COLONOGRAPHY - COLON CA SCREENING 1959 FIT - COLON CA SCREENING 1959 FLEX SIG - COLON CA SCREENING 1959 LIPID TESTING 1959 HIV SCREENING 1974 HEPATITIS C SCREENING 04/13/1977 LUNG CANCER SCREENING 2009 ZOSTER VACCINE (1 of 2) 2009 PNEUMOCOCCAL VACCINE 50+ (2 of 2 - PCV) 12/21/2014 12/21/2013 AAA SCREENING 2024 DEPRESSION SCREENING 06/09/2024 MEDICARE AWV CALENDAR YEAR 2024 COVID-19 VACCINE (3 - season) 2025 11/05/2020, 10/06/2020 INFLUENZA VACCINE (#1) 2025 07/06/2019, 2017 COLOGUARD (AGES 45-75) - COLON CA SCREENING 10/13/2025 10/13/2022 Colorectal Cancer Screening 10/13/2025 SCREENING FOR DIABETES 02/05/2028 , 02/03/2025, 02/02/2025, Additional history exists Respiratory Syncytial Virus (RSV) Vaccine Pt: or over 60 yrs (1 - 1-dose 75+ series) 2034 DTAP/TDAP/TD VACCINES (2 - Td or Tdap) 01/30/2035 01/30/2025 HEPATITIS B VACCINE Aged Out No longe r eligible based on patient's age to complete this topic HIB VACCINE Aged Out No longer eligi ble based on patient's age to complete this topic HPV VACCINE Aged Out No longer eligi ble based on patient's age to complete this topic MENINGOCOCCAL (Group B) VACCINE SHARED DECISION-MAKING Aged Out No longer eligible based on patient's age to complete this topic MENINGOCOCCAL GROUPS A/C/Y/W VACCINE Aged Out No longer eligible based on patient's age to complete this topic Medical Devices Implanted Type Area Air Compressor Operator Device Identifier Shelf Expiration Date Model / Serial / Lot Mesh Srg Ventralight St Sepra 6x4in Implanted:Qty: 1 on 03/30/2024 by Jean Claude Coker MD at [facility] N/A: Chest [employer] [id number] / / [id number] Omero Nail Im 10mm 360mm Tn Adv Tib Mr Cndt Implanted:Qty: 1 on 01/31/2025 by Leonel Barron DO at [facility] Left: Tibia Synthes [facility] 04/08/2034 [id number] BILL ONLY / / [id number] 12 Hole 2.7 Volt Mini Plate Implanted:Qty: 1 on 01/31/2025 by Leonel Barron DO at [facility] Left: Tibia Synthes [employer] [id number] / N/A / N/A Omero Screw 5mm 36mm X25 Lck Im Nail Bone - Sn/A Implanted:Qty: 1 on 01/31/2025 by Leonel Barron DO at [facility] Left: Tibia Synthes [employer] [id number] BILL ONLY / N/A / N/A Omero Screw 5mm 44mm Lck Bone - Sn/A Implanted:Qty: 2 on 01/31/2025 by Leonel Barron, DO at [facility] Left: Tibia Synthe[employer] [id number] BILL ONLY / N/A / N/A Omero Screw 2.7mm 8mm T8 Cortx V Ss Nonster - Sn/A Implanted:Qty: 3 on 01/31/2025 by Leonel Barron, DO at [facility] Left: Tibia [employer] [id number] BILL ONLY / N/A / N/A Omero Screw 2.7mm 10mm T8 Cortx V Ss Nonste - Sn/A Implanted:Qty: 3 on 01/31/2025 by Leonel Barron, DO at [facility] Left: Tibia [employer]ynthes [employer] [id number] BILL ONLY / N/A / N/A Explanted Type Area Air Compressor Operator Device Identifier Shelf Expiration Date Model / Serial / Lot Slv Prtc 12mm Suprapatellar Strl - Sn/A Explanted:Qty: 1 on 01/31/2025 by Leonel Barron, DO at [facility] Left: Tibia [employer]ynthes [employer] [id number] S / N/A / N/A Procedures Procedure Name Priority Date/Time Associated Diagnosis Comments XR TIBIA FIBULA LEFT 2VW STAT 02/22/2025 7:57 PM CDT Left leg pain XR ABDOMEN KUB Routine 02/07/2025 9:58 PM CDT URINALYSIS REFLEX MICROSCOPIC REFLEX CULTURE Routine 02/04/2025 11:06 PM CDT XR CHEST 1VW PORTABLE Routine 02/04/2025 10:42 PM CDT CULTURE BLOOD Routine 02/04/2025 9:49 PM CDT BASIC METABOLIC PANEL (CALCIUM TOTAL) STAT 02/04/2025 9:43 PM CDT CBC W AUTO DIFFERENTIAL STAT 02/04/2025 9:43 PM CDT CULTURE BLOOD Routine 02/04/2025 9:43 PM CDT CBC W/O DIFFERENTIAL Routine 02/03/2025 6:34 PM CDT RENAL FUNCTION PANEL Routine 02/03/2025 6:34 PM CDT MAGNESIUM BLOOD Routine 02/03/2025 6:34 PM CDT CBC W/O DIFFERENTIAL Routine 02/02/2025 6:43 PM CDT RENAL FUNCTION PANEL Routine 02/02/2025 6:43 PM CDT MAGNESIUM BLOOD Routine 02/02/2025 6:43 PM CDT CBC W/O DIFFERENTIAL Routine 02/01/2025 6:19 PM CDT RENAL FUNCTION PANEL Routine 02/01/2025 6:19 PM CDT MAGNESIUM BLOOD Routine 02/01/2025 6:19 PM CDT BASIC METABOLIC PANEL (CALCIUM TOTAL) AM Draw 02/01/2025 1:21 AM CDT PHOSPHORUS BLOOD AM Draw 02/01/2025 1:21 AM CDT MAGNESIUM BLOOD AM Draw 02/01/2025 1:21 AM CDT CBC W AUTO DIFFERENTIAL AM Draw 02/01/2025 1:21 AM CDT FL JULIA SURGERY Routine 01/31/2025 1:20 PM CDT Type I or II open fracture of shaft of left tibia, unspecified fracture morphology, initial encounter ENDOTRACHEAL TUBE NOTE Routine 01/31/2025 11:38 AM CDT WV OPEN RX TIBIA SHAFT FX,INTRAMED JAGUAR 01/31/2025 10:46 AM CDT Fracture Special Needs JULIA MYLES, 6L NS, CYSTO TUBING - 01/31 @ 0526 CW WV LISET SUBQ TISSUE 20 SQ CM/< 01/31/2025 10:46 AM CDT Fracture Special Needs JULIA MYLES, 6L NS, CYSTO TUBING - 01/31 @ 0526 CW VITAMIN D 25-HYDROXY Routine 01/31/2025 2:11 AM CDT BASIC METABOLIC PANEL (CALCIUM TOTAL) STAT 01/31/2025 2:11 AM CDT PHOSPHORUS BLOOD STAT 01/31/2025 2:11 AM CDT MAGNESIUM BLOOD STAT 01/31/2025 2:11 AM CDT CBC W AUTO DIFFERENTIAL STAT 01/31/2025 2:11 AM CDT BLOOD TYPE VERIFICATION STAT 01/31/2025 2:[address] TIBIA FIBULA LEFT WO CONT STAT 01/31/2025 1:57 AM CDT Trauma XR WRIST LEFT 2VW STAT 01/30/2025 11: 34 PM CDT Trauma XR WRIST RIGHT 2VW STAT 01/30/2025 11 :34 PM CDT Trauma XR FOOT LEFT 2VW STAT 01/30/2025 11:3 4 PM CDT Trauma XR ANKLE LEFT 2VW STAT 01/30/2025 11: 33 PM CDT Trauma XR TIBIA FIBULA LEFT 2VW STAT 01/30/2025 11:33 PM CDT Trauma XR CALCANEUS LEFT 2VW OR MORE STAT 01/30/2025 10:42 PM CDT Trauma XR KNEE LEFT 2VW OR LESS STAT 01/30/2025 10:41 PM CDT Trauma XR TIBIA FIBULA LEFT 2VW STAT 01/30/2025 10:[address] FACIAL BONES WO CONTRAST STAT 01/30/2025 9:[address] LUMBAR SPINE WO CONTRAST STAT 01/30/2025 9:[address] THORACIC SPINE WO CONTRAST STAT 01/30/2025 9:[address] CHEST ABDOMEN PELVIS W CONT STAT 01/30/2025 9:[address] CERVICAL SPINE WO CONTRAST STAT 01/30/2025 9:[address] HEAD WO CONTRAST STAT 01/30/2025 9 :52 PM CDT Trauma TEG 6S PLATELET MAPPING STAT 01/30/2025 9:48 PM CDT TEG 6 GLOBAL HEMOSTASIS W/ LYSIS STAT 01/30/2025 9:48 PM CDT XR CHEST 1VW PORTABLE STAT 01/30/2025 9:25 PM CDT Trauma XR PELVIS 1 OR 2VW Routine 01/30/2025 9: 25 PM CDT Trauma TYPE + SCREEN PANEL STAT 01/30/2025 9 :09 PM CDT COMPREHENSIVE METABOLIC PANEL STAT 01/30/2025 9:09 PM CDT PT-INR STAT 01/30/2025 9:09 PM CDT LIPASE BLOOD STAT 01/30/2025 9:09 PM CDT CBC W AUTO DIFFERENTIAL STAT 01/30/2025 9:09 PM CDT ALCOHOL ETHYL BLOOD STAT 01/30/2025 9 :09 PM CDT from Last 3 Months Results * XR TIBIA FIBULA LEFT 2VW (02/22/2025 7:57 PM CDT) Only the most recent of3 resultswithin the time period is included. Anatomical Region Laterality Modality Lower Extremity Digital Radiogra phy 02/22/2025 8:06 PM CDT Narrative 02/22/2025 9:38 PM CDT PROCEDURE: XR TIBIA FIBULA LEFT 2VW, DATE/TIME OF EXAM: 02/22/2025 7:57 PM, LOCATION [facility] INDICATION: M79.605: Left leg pain ADDITIONAL CLINICAL [...] Report dictated by Eileen Pate MD, MD (campus president). > Dictated by Eileen Pate MD 02/22/2025 8:06 PM > Dictated by Clinical Care Manager I, Kalyn Evangelista MD have personally reviewed and interpreted this examination/study. > Interpreting Provider: Kalyn Evangelista MD on 02/22/2025 9:38 PM Procedure Note Kalyn Evangelista MD - 02/22/2025 PROCEDURE: XR TIBIA FIBULA LEFT 2VW, DATE/TIME OF EXAM: 02/22/2025 7:57 PM, LOCATION [facility] INDICATION: M79.605: Left leg pain ADDITIONAL CLINICAL [...] Report dictated by Eileen Pate MD, MD (campus president). > Dictated by Eileen Pate MD 02/22/2025 8:06 PM > Dictated by Clinical Care Manager I, Kalyn Evangelista MD have personally reviewed and interpreted this examination/study. > Interpreting Provider: Kalyn Evangelista MD on 59:38 PM us Marsha Rivera PA-C DIAGNOSTIC IMAGING ORDERABL ES Final Result * XR Abdomen Kub (02/07/2025 9:58 PM CDT) Anatomical Region Laterality Modality Abdomen Radiographic Adriana ging 02/08/2025 8:15 AM CDT Narrative 02/08/2025 8:21 AM CDT PROCEDURE: XR ABDOMEN KUB DATE/TIME OF EXAM: [...] MD on 02/08/2025 8:21 AM Procedure Note Fish Mijares MD - 02/08/2025 PROCEDURE: XR ABDOMEN KUB DATE/TIME OF EXAM: [...] Fish Mijares MD on 02/08/2025 8:21 AM us David Mc MD DIAGNOSTIC IMAGING ORDERABLES Final Result * (ABNORMAL) URINALYSIS REFLEX MICROSCOPIC REFLEX CULTURE (02/04/2025 11:06 PM CDT) Color UA Yellow Yellow, Straw 02/04/2025 11:39 PM CDT [facility] Clarity UA Turbid(A) Clear 02/04/2025 11:39 PM CDT [facility] Glucose UA Normal Normal 02/04/2025 11:39 PM CDT [facility] Bilirubin UA Negative Negative 02/04/2025 11:39 PM CDT [facility] Ketone UA Negative Negative 02/04/2025 11:39 PM CDT [facility] Specific [place] UA 1.013 1.005 - 1.030 02/04/2025 11:39 PM CDT [facility] Blood UA Negative Negative 02/04/2025 11:39 PM CDT [facility] pH UA 7.0 5.0 - 8.0 02/04/2025 11:39 PM CDT [facility] Protein UA Negative Negative 02/04/2025 11:39 PM CDT [facility] Urobilinogen UA Normal Normal mg/dL 02/04/2025 11:39 PM CDT [facility] Nitrite UA Negative Negative 02/04/2025 11:39 PM CDT [facility] Leukocyte Esterase UA Negative Negative 02/04/2025 11:39 PM CDT [facility] Reflex Status Culture not indicated 02/04/2025 11:39 PM CDT [facility] Urine Microscopy Urine microscopy not indicated 02/04/2025 11:39 PM CDT [facility] Urine URINE SPECIMEN OBTAINED BY CLEAN CATCH PROCEDURE / Unknown Collection / Unknown 02/04/2025 11:06 PM CDT 02/04/2025 11:21 PM CDT Narrative [facility] - 02/04/2025 11:39 PM CDT David Mc MD LAB - URINALYSIS ORDERABLES Fi nal Result [facility] [address] [place], [place] [id number] * XR Chest 1Vw Portable (02/04/2025 10:42 PM CDT) Only the most recent of2 resultswithin the time period is included. Anatomical Region Laterality Modality Chest Radiographic Adriana ging 02/05/2025 7:51 AM CDT Narrative 02/05/2025 8:55 AM CDT PROCEDURE: XR CHEST 1VW PORTABLE DATE/TIME OF [...] MD on 02/05/2025 8:55 AM Procedure Note Fish Mijares MD - 02/05/2025 PROCEDURE: XR CHEST 1VW PORTABLE DATE/TIME OF [...] 02/05/2025 8:55 AM us David Mc MD DIAGNOSTIC IMAGING ORDERABLES Final Result * CULTURE BLOOD (02/04/2025 9:49 PM CDT) Only the most recent of2 resultswithin the time period is included. Culture No growth day 5 MARCELINA 02/10/2025 1:31 AM CDT [facility] Blood BLOOD SPECIMEN / Unknown Venipuncture / Unknown 02/04/2025 9:49 PM CDT 02/04/2025 11:23 PM CDT us David Mc MD LAB - MICROBIOLOGY ORDERABLES Final Result [facility] [address] [place] [address], [facility] [phone] * (ABNORMAL) CBC W AUTO DIFFERENTIAL (02/04/2025 9:43 PM CDT) Only the most recent of4 resultswithin the time period is included. WBC 9.7 4.0 - 10.7 x10E9/L 02/04/2025 11:32 PM CDT [facility] RBC Count 4.03(L) 4.30 - 5.80 x10E12/L 02/04/2025 11:32 PM CDT [facility] Hemoglobin 13.0(L) 13.3 - 17.5 g/dL 02/04/2025 11:32 PM CDT [facility] Hematocrit 38.4(L) 38.7 - 51.1 % 02/04/2025 11:32 PM CDT [facility] MCV 95.3 80.0 - 98.0 fL 02/04/2025 11:32 PM CDT [facility] MCH 32.3 26.7 - 33.6 pg 02/04/2025 11:32 PM CDT [facility] MCHC 33.9 31.7 - 36.3 g/dL 02/04/2025 11:32 PM CDT [facility] RDW-CV 12.6 11.3 - 14.8 % 02/04/2025 11:32 PM CDT [facility] Platelet Count 298 150 - 420 x10E9/L 02/04/2025 11:32 PM CDT [facility] MPV 10.4 7.8 - 11.4 fL 02/04/2025 11:32 PM CDT [facility] Neutrophil % 69.3 41.0 - 74.0 % 02/04/2025 11:32 PM CDT [facility] Lymphocyte % 17.1 17.0 - 47.0 % 02/04/2025 11:32 PM CDT [facility] Monocyte % 12.1(H) 3.0 - 11.0 % 02/04/2025 11:32 PM CDT [facility] Eosinophil % 1.0 0.0 - 7.0 % 02/04/2025 11:32 PM CDT [facility] Basophil % 0.2 0.0 - 1.6 % 02/04/2025 11:32 PM CDT [facility] Immature Granulocytes % 0.3 0.0 - 1.0 % 02/04/2025 11:32 PM CDT [facility] Neutrophil Absolute 6.70 1.60 - 7.50 x10E9/L 02/04/2025 11:32 PM CDT [facility] Lymphocyte Absolute 1.65 1.00 - 4.40 x10E9/L 02/04/2025 11:32 PM CDT [facility] Monocyte Absolute 1.17(H) 0.15 - 1.00 x10E9/L 02/04/2025 11:32 PM CDT [facility] Eosinophil Absolute 0.10 0.00 - 0.60 x10E9/L 02/04/2025 11:32 PM CDT [facility] Basophil Absolute 0.02 0.00 - 0.13 x10E9/L 02/04/2025 11:32 PM CDT [facility] Blood BLOOD SPECIMEN / Unknown Venipuncture / Unknown 02/04/2025 9:43 PM CDT 02/04/2025 11:25 PM CDT us David Mc MD LAB - HEMATOLOGY ORDERABLES Fi nal Result [facility] [address] [place] [address] * (ABNORMAL) BASIC METABOLIC PANEL (CALCIUM TOTAL) (02/04/2025 9:43 PM CDT) Only the most recent of3 resultswithin the time period is included. Glucose 121(H) 70 - 99 mg/dL 02/04/2025 11:39 PM CDT [facility] Sodium 135(L) 136 - 145 mmol/L 02/04/2025 11:39 PM CDT [facility] Potassium 4.1 3.5 - 5.1 mmol/L 02/04/2025 11:39 PM CDT [facility] Chloride 104 98 - 107 mmol/L 02/04/2025 11:39 PM CDT [facility] CO2 23 22 - 29 mmol/L 02/04/2025 11:39 PM CDT [facility] Calcium 8.9 8.4 - 10.4 mg/dL 02/04/2025 11:39 PM T [facility] Anion Gap 8 6 - 16 mmol/L 02/04/2025 11:39 PM CDT [facility] BUN 12 7 - 26 mg/dL 02/04/2025 11:39 PM CDT [facility] Creatinine 0.69(L) 0.72 - 1.25 mg/dL 02/04/2025 11:39 PM T [facility] eGFR by CKD-EPI >90 >=90 mL/min/1.7 3 m2 02/04/2025 11:39 PM [facility] Comment:Estimated Glomerular Filtration Rate (eGFR) calculated using the CKD-EPI Creatinine Equation (2020), per the National Kidney Foundation and [place] [employer] Neph[employer] recommendations. Blood BLOOD SPECIMEN / Unknown Venipuncture / Unknown 02/04/2025 9:43 PM CDT 02/04/2025 11:24 PM CDT David Mc MD LAB - CHEMISTRY ORDERABLES Fin al Result [facility] [address] [place] [address] * (ABNORMAL) CBC W/O DIFFERENTIAL (02/03/2025 6:34 PM CDT) Only the most recent of3 resultswithin the time period is included. WBC 8.1 4.0 - 10.7 x10E9/L 02/03/2025 8:39 PM [facility] RBC Count 3.80(L) 4.30 - 5.80 x10E12/L 02/03/2025 8:39 PM [facility] Hemoglobin 12.3(L) 13.3 - 17.5 g/dL 02/03/2025 8:39 PM [facility] Hematocrit 36.1(L) 38.7 - 51.1 % 02/03/2025 8:39 PM [facility] MCV 95.0 80.0 - 98.0 fL 02/03/2025 8:39 PM [facility] MCH 32.4 26.7 - 33.6 pg 02/03/2025 8:39 PM T [facility] MCHC 34.1 31.7 - 36.3 g/dL 02/03/2025 8:39 PM [facility] RDW-CV 12.7 11.3 - 14.8 % 02/03/2025 8:39 PM [facility] Platelet Count 222 150 - 420 x10E9/L 02/03/2025 8:39 PM [facility] MPV 11.1 7.8 - 11.4 fL 02/03/2025 8:39 PM [facility] Blood BLOOD SPECIMEN / Unknown Lab Venipuncture / Unknown 02/03/2025 6:34 PM CDT 02/03/2025 8:26 PM CDT Aliya Sanchez MD LAB - HEMATOLOGY ORDERABLES Final Result [address] [address] [phone] * (ABNORMAL) RENAL FUNCTION PANEL (02/03/2025 6:34 PM CDT) Only the most recent of3 resultswithin the time period is included. BUN 10 7 - 26 mg/dL 02/03/2025 8:53 PM [facility] Creatinine 0.65(L) 0.71 - 1.16 mg/dL 02/03/2025 8:53 PM [facility] Sodium 137 136 - 145 mmol/L 02/03/2025 8:53 PM [facility] Potassium 4.4 3.5 - 4.5 mmol/L 02/03/2025 8:53 PM [facility] Chloride 106 98 - 107 mmol/L 02/03/2025 8:53 PM [facility] CO2 26 22 - 29 mmol/L 02/03/2025 8:53 PM [facility] Glucose 169(H) 70 - 99 mg/dL 02/03/2025 8:53 PM [facility] Albumin 2.9(L) 3.4 - 5.0 g/dL 02/03/2025 8:53 PM CDT [facility] Calcium 8.7 8.4 - 10.2 mg/dL 02/03/2025 8:53 PM [facility] Phosphorus 2.9 2.8 - 5.1 mg/dL 02/03/2025 8:53 PM T [facility] Anion Gap 5(L) 6 - 16 02/03/2025 8:53 PM T [facility] BUN/Creatinine Ratio 15 7 - 23 02/03/2025 8:53 PM T [facility] Osmolality Calculated 287 275 - 295 mOsm/kg 02/03/2025 8:53 PM [facility] eGFR by CKD-EPI >90 >=90 mL/min/1.7 3 m2 02/03/2025 8:53 PM [facility] Comment:Estimated Glomerular Filtration Rate (eGFR) calculated using the CKD-EPI Creatinine Equation (2020), per the National Kidney Foundation and [place] [employer] Neph[employer] recommendations. Blood BLOOD SPECIMEN / Unknown Lab Venipuncture / Unknown 02/03/2025 6:34 PM CDT 02/03/2025 8:26 PM CDT Aliya Sanchez MD LAB - CHEMISTRY ORDERABLES Final Result [address] [address], [facility] [phone] * MAGNESIUM BLOOD (02/03/2025 6:34 PM CDT) Only the most recent of5 resultswithin the time period is included. Magnesium 2.2 1.6 - 2.6 mg/dL 02/03/2025 8:53 PM CDT [facility] Blood BLOOD SPECIMEN / Unknown Lab Venipuncture / Unknown 02/03/2025 6:34 PM CDT 02/03/2025 8:26 PM CDT Aliya Sanchez MD LAB - CHEMISTRY ORDERABLES Final Result [address] [place] [address], [place] [phone] * (ABNORMAL) PHOSPHORUS BLOOD (02/01/2025 1:21 AM CDT) Only the most recent of2 resultswithin the time period is included. Phosphorus 2.6(L) 2.8 - 5.1 mg/dL 02/01/2025 2:02 AM CDT [facility] Blood BLOOD SPECIMEN / Unknown Lab Venipuncture / Unknown 02/01/2025 1:21 AM CDT 02/01/2025 1:32 AM CDT us Robbi Rodriguez MD LAB - CHEMISTRY ORDERABLES Final Result Performing Organization Address [facility] Co de Phone Number [phone] [place] [address], [facility] [phone] * [place] [facility] (01/31/2025 1:20 PM CDT) Narrative [facility] - 01/31/2025 1:23 PM CDT Fluoroscopy was used for this exam in the OR. Please see the Operative report. Leonel Barron DO FLUOROSCOPY ORDERABLES Final R esult Performing Organization Address [facility] Co de Phone Number [facility] * ETT LINE PERFORMABLE (01/31/2025 11:38 AM CDT) Narrative Delonte Deleon MD - 01/31/2025 11:38 AM CDT Delonte Deleon MD 01/31/2025 11:39 AM Endotracheal Tube Placement: Patient Location: OR. Intubation Event Date/Time: 01/31/2025 11:24 AM Procedure: intubation ([id number]) Procedure Section: Induction: standard IV Patient Position: sniffing and supine Mask Ventilation: easy with oral airway. Blade Type: Video Laryngoscopy View: grade 1 (full cords) Intubation Adjuncts: video laryngoscope Tube: endotracheal tube Placement: oral Tube type: cuff - inflated Tube Size (MM): 7 Depth of Insertion (CM): 24 Measured From: gums Cuff Inflated With: air Number of Attempts: 1. Placement Verified By: direct visualization, bilateral breath sounds, chest auscultation and CO2 monitor Tube secured with: adhesive tape. Dentition unchanged? Yes Difficult Airway? No. Procedure Start Time: 01/31/2025 11:24 AM. Staff Section Anesthesia Provider: Delonte Deleon MD, Performed the procedure Provider #1: Laura Diana MD. Laura Diana MD GENERAL ANESTHESIA ORDERABLES Fi nal Result * VITAMIN D 25-HYDROXY (01/31/2025 2:11 AM CDT) Vitamin D, 25 Hydroxy 44.2 30.0 - 80.0 ng/mL 01/31/2025 8:04 AM CDT [facility] Comment: The recommendations for 25-Hydroxy Vitamin D clinical decision points are as follows: Deficient: <20.0 ng/mL Insufficient: 20.0 - 29.9 ng/mL Sufficient: 30.0 - 100.0 ng/mL Potential Toxicity: >100 ng/mL Reference: The Endocrine Society Clinical Practice Guidelines. 2011 If the 25-Hydroxy Vitamin D results are inconsitent with clinical evidence, it is recommended that follow-up testing using a method such as LC/MS/MS be performed to confirm the result. Blood BLOOD SPECIMEN / Unknown Lab Venipuncture / Unknown 01/31/2025 2:11 AM CDT 01/31/2025 2:12 AM CDT Andree Orosco PA-C LAB - CHEMISTRY ORDERABLES Final Result Performing Organization Address [facility]/State/ZIP Co de Phone Number [facility] [address] [place] [phone], [facility] [phone] * BLOOD TYPE VERIFICATION (01/31/2025 2:00 AM CDT) ABO Rh A POS 01/31/2025 3:0 4 AM CDT [facility] Blood Bank BLOOD SPECIMEN / Unknown Lab Venipuncture / Unknown 01/31/2025 2:00 AM CDT 01/31/2025 2:06 AM CDT Robbi Rodriguez MD LAB - BLOOD BANK ORDERABLES Nita l Result [facility] [address] [place] [address], [facility] [phone] * CT Tibia Fibula Left Wo Cont (01/31/2025 1:57 AM CDT) Anatomical Region Laterality Modality Lower Extremity Computed Tomogra phy 01/31/2025 4:52 AM CDT Narrative 01/31/2025 8:19 AM CDT PROCEDURE: CT TIBIA FIBULA LEFT WO CONT DATE/TIME OF EXAM: 01/31/2025 1:57 AM CLINICAL INFORMATION: None relevant/not provided if blank. Indication: T14.90XA: Trauma COMPARISON:X-rays of the left tibia and fibula from 01/30/2025. TECHNIQUE: CT of the left tibia and fibula was performed utilizing standard protocol. CT dose reduction technique was used, including Automated Exposure Control. FINDINGS/IMPRESSION: Transversely oriented fractures through the distal diaphyses of the tibia and fibula. There is anterior displacement of the distal tibial fracture fragment of one shaft width and moderate apex dorsal angulation. There is anterior displacement of the distal fibular fracture fragment of one shaft width and minimal apex dorsal angulation. There is a nondisplaced fracture at the anterior/lateral aspect of the distal articular surface of the tibia (series 6 image 62). Scattered foci of gas within the soft tissues concerning for open fracture. Soft tissue swelling is present. Splinting material overlies the distal left lower extremity. > Dictated by Foreign Rice D.O. - Diagnostic Clinical Care Manager. > Dictated by Clinical Care Manager I, Abdullahi Davidson MD have personally reviewed and interpreted this examination/study. > Interpreting Provider: Abdullahi Davidson MD on 01/31/2025 8:19 AM Procedure Note Abdullahi Davidson MD - 01/31/2025 PROCEDURE: CT TIBIA FIBULA LEFT WO CONT DATE/TIME OF EXAM: 01/31/2025 1:57 AM CLINICAL INFORMATION: None relevant/not provided if blank. Indication: T14.90XA: Trauma COMPARISON:X-rays of the left tibia and fibula from 01/30/2025. TECHNIQUE: CT of the left tibia and fibula was performed utilizingstandard protocol. CT dose reduction technique was used, including Automated Exposure Control. FINDINGS/IMPRESSION: Transversely oriented fractures through the distal diaphyses of thetibia and fibula. There is anterior displacement of the distal tibial fracture fragment of one shaft width and moderate apex dorsal angulation. Thereis anterior displacement of the distal fibular fracture fragment of oneshaft width and minimal apex dorsal angulation. There is a nondisplacedfracture at the anterior/lateral aspect of the distal articular surface of thetibia (series 6 image 62). Scattered foci of gas within the soft tissues concerning for open fracture. Soft tissue swelling is present. Splinting material overlies the distal left lower extremity. > Dictated by Foreign Rice D.O. - Diagnostic Clinical Care Manager. > Dictated by Clinical Care Manager I, Abdullahi Davidson MD have personally reviewed and interpreted this examination/study. > Interpreting Provider: Abdullahi Davidson MD on 01/31/2025 8:19 AM Robbi Rodriguez MD CT ORDERABLES Final Result * XR Wrist Left 2Vw (01/30/2025 11:34 PM CDT) Anatomical Region Laterality Modality Wrist / Hand Digital Radiogra phy 01/31/2025 4:40 AM CDT Impressions 01/31/2025 8:17 AM CDT IMPRESSION: No acute fracture or dislocation identified. Report dictated by Anusha Lowery MD, (campus president). > Dictated by Clinical Care Manager Oriana, Juan Pablo Wright MD have personally reviewed and interpreted this examination/study. > Interpreting Provider: Juan Pablo Wright MD on 01/31/2025 8:17 AM Narrative 01/31/2025 8:17 AM CDT PROCEDURE: XR WRIST LEFT 2VW, DATE/TIME OF EXAM: 01/30/2025 11:34 PM, LOCATION [facility] INDICATION: T14.90XA: Trauma ADDITIONAL CLINICAL INFORMATION: Ordering Provider Reason For Exam: fx Technologist Note: Additional: COMPARISON: None. FINDINGS: Negative ulnar variance. The osseous structures are intact and well aligned without acute fracture or dislocation. The joint spaces are preserved. Bone density and texture are normal. No soft tissue swelling is present. Procedure Note Juan Pablo Wright MD - 01/31/2025 PROCEDURE: XR WRIST LEFT 2VW, DATE/TIME OF EXAM: 01/30/2025 11:34 PM, LOCATION [facility] INDICATION: T14.90XA: Trauma ADDITIONAL CLINICAL INFORMATION: Ordering Provider Reason For Exam: fx Technologist Note: Additional: COMPARISON: None. FINDINGS: Negative ulnar variance. The osseous structures are intact and wellaligned without acute fracture or dislocation. The joint spaces are preserved.Bone density and texture are normal. No soft tissue swelling is present. IMPRESSION: No acute fracture or dislocation identified. Report dictated by Anusha Lowery MD, (campus president). > Dictated by Clinical Care Manager I, Juan Pablo Wright MD have personally reviewed and interpreted this examination/study. > Interpreting Provider: Juan Pablo Wright MD on 01/31/2025 8:17 AM Simon Chairez MD DIAGNOSTIC IMAGING ORDERABL ES Final Result * XR Wrist Right 2Vw (01/30/2025 11:34 PM CDT) Anatomical Region Laterality Modality Wrist / Hand Digital Radiogra phy 01/31/2025 1:29 AM CDT Impressions 01/31/2025 8:16 AM CDT IMPRESSION: No acute fracture or dislocation identified. Report dictated by Anusha Lowery MD, (campus president). > Dictated by Clinical Care Manager I, Juan Pablo Wright MD have personally reviewed and interpreted this examination/study. > Interpreting Provider: Juan Pablo Wright MD on 01/31/2025 8:16 AM Narrative 01/31/2025 8:16 AM CDT PROCEDURE: XR WRIST RIGHT 2VW, DATE/TIME OF EXAM: 01/30/2025 11:34 PM, LOCATION [facility] INDICATION: T14.90XA: Trauma ADDITIONAL CLINICAL INFORMATION: Ordering Provider Reason For Exam: fx Technologist Note: Additional: COMPARISON: None. FINDINGS: The osseous structures are intact and well aligned without acute fracture or dislocation. The joint spaces are preserved. Degenerative changes in the first metacarpophalangeal joint. Bone density and texture are normal. No soft tissue swelling is present. Procedure Note Juan Pablo Wright MD - 01/31/2025 PROCEDURE: XR WRIST RIGHT 2VW, DATE/TIME OF EXAM: 01/30/2025 11:34 PM, LOCATION [facility] INDICATION: T14.90XA: Trauma ADDITIONAL CLINICAL INFORMATION: Ordering Provider Reason For Exam: fx Technologist Note: Additional: COMPARISON: None. FINDINGS: The osseous structures are intact and well aligned without acutefracture or dislocation. The joint spaces are preserved. Degenerative changes inthe first metacarpophalangeal joint. Bone density and texture are normal. No soft tissue swelling is present. IMPRESSION: No acute fracture or dislocation identified. Report dictated by Anusha Lowery MD, (campus president). > Dictated by Clinical Care Manager I, Juan Pablo Wright MD have personally reviewed and interpreted this examination/study. > Interpreting Provider: Juan Pablo Wright MD on 01/31/2025 8:16 AM Simon Chairez MD DIAGNOSTIC IMAGING ORDERABL ES Final Result * XR Foot Left 2Vw (01/30/2025 11:34 PM CDT) Anatomical Region Laterality Modality Ankle / Foot Digital Radiogra phy 01/31/2025 12:2 8 AM CDT Narrative 01/31/2025 8:09 AM CDT PROCEDURE: XR ANKLE LEFT 2VW, XR FOOT LEFT 2VW, XR TIBIA FIBULA LEFT 2VW, DATE/TIME OF EXAM: 01/30/2025 11:36 PM, LOCATION [facility] INDICATION: T14.90XA: Trauma ADDITIONAL CLINICAL INFORMATION: Ordering Provider Reason For Exam: fx Technologist Note: Additional: COMPARISON: None available. FINDINGS/IMPRESSION: Left tibia/fibula: Casting material is present. Redemonstration of comminuted displaced fractures of the mid to distal tibial and fibular shafts. Alignment is unchanged compared to prior study. Left ankle: Casting material is present on the AP view. The ankle mortise is intact. Skin defect along the posterior aspect of the lower ankle. Left foot: The presence of casting material obscures soft tissue and osseous details. Within this limitation, no acute fracture is identified. The joint spaces are preserved. > Dictated by Anusha Lowery MD, (campus president). > Dictated by Clinical Care Manager Juan Pablo Gastelum MD have personally reviewed and interpreted this examination/study. > Interpreting Provider: Juan Pablo Wright MD on 01/31/2025 8:09 AM Procedure Note Juan Pablo Wright MD - 01/31/2025 PROCEDURE: XR ANKLE LEFT 2VW, XR FOOT LEFT 2VW, XR TIBIA FIBULA [id number], DATE/TIME OF EXAM: 01/30/2025 11:36 PM, LOCATION [facility] INDICATION: T14.90XA: Trauma ADDITIONAL CLINICAL INFORMATION: Ordering Provider Reason For Exam: fx Technologist Note: Additional: COMPARISON: None available. FINDINGS/IMPRESSION: Left tibia/fibula: Casting material is present. Redemonstration of comminuted displaced fractures of the mid to distal tibial and fibular shafts. Alignment is unchanged compared to prior study. Left ankle: Casting material is present on the AP view. The ankle mortise is intact. Skin defect along the posterior aspect of the lower ankle. Left foot: The presence of casting material obscures soft tissue and osseousdetails. Within this limitation, no acute fracture is identified. The jointspaces are preserved. > Dictated by Anusha Lowery MD, (campus president). > Dictated by Clinical Care Manager Juan Pablo Gastelum MD have personally reviewed and interpreted this examination/study. > Interpreting Provider: Juan Pablo Wright MD on 01/31/2025 8:09 AM Robbi Rodriguez MD DIAGNOSTIC IMAGING ORDERABLES Fi nal Result * XR Ankle Left 2Vw (01/30/2025 11:33 PM CDT) Anatomical Region Laterality Modality Lower Extremity Digital Radiogra phy 01/31/2025 12:2 8 AM CDT Narrative 01/31/2025 8:09 AM CDT PROCEDURE: XR ANKLE LEFT 2VW, XR FOOT LEFT 2VW, XR TIBIA FIBULA LEFT 2VW, DATE/TIME OF EXAM: 01/30/2025 11:36 PM, LOCATION [facility] INDICATION: T14.90XA: Trauma ADDITIONAL CLINICAL INFORMATION: Ordering Provider Reason For Exam: fx Technologist Note: Additional: COMPARISON: None available. FINDINGS/IMPRESSION: Left tibia/fibula: Casting material is present. Redemonstration of comminuted displaced fractures of the mid to distal tibial and fibular shafts. Alignment is unchanged compared to prior study. Left ankle: Casting material is present on the AP view. The ankle mortise is intact. Skin defect along the posterior aspect of the lower ankle. Left foot: The presence of casting material obscures soft tissue and osseous details. Within this limitation, no acute fracture is identified. The joint spaces are preserved. > Dictated by Anusha Lowery MD, (campus president). > Dictated by Clinical Care Manager Juan Pablo Gastelum MD have personally reviewed and interpreted this examination/study. > Interpreting Provider: Juan Pablo Wright MD on 01/31/2025 8:09 AM Procedure Note Juan Pablo Wright MD - 01/31/2025 PROCEDURE: XR ANKLE LEFT 2VW, XR FOOT LEFT 2VW, XR TIBIA FIBULA [id number], DATE/TIME OF EXAM: 01/30/2025 11:36 PM, LOCATION [facility] INDICATION: T14.90XA: Trauma ADDITIONAL CLINICAL INFORMATION: Ordering Provider Reason For Exam: fx Technologist Note: Additional: COMPARISON: None available. FINDINGS/IMPRESSION: Left tibia/fibula: Casting material is present. Redemonstration of comminuted displaced fractures of the mid to distal tibial and fibular shafts. Alignment is unchanged compared to prior study. Left ankle: Casting material is present on the AP view. The ankle mortise is intact. Skin defect along the posterior aspect of the lower ankle. Left foot: The presence of casting material obscures soft tissue and osseousdetails. Within this limitation, no acute fracture is identified. The jointspaces are preserved. > Dictated by Anusha Lowery MD, (campus president). > Dictated by Clinical Care Manager Juan Pablo Gastelum MD have personally reviewed and interpreted this examination/study. > Interpreting Provider: Juan Pablo Wright MD on 01/31/2025 8:09 AM Robbi Rodriguez MD DIAGNOSTIC IMAGING ORDERABLES Fi nal Result * XR Calcaneus Left 2Vw or More (01/30/2025 10:42 PM CDT) Anatomical Region Laterality Modality Lower Extremity, Ankle / Foot Di gital Radiography 01/30/2025 10:4 2 PM CDT Narrative 01/31/2025 1:14 AM CDT PROCEDURE: XR KNEE LEFT 2VW OR LESS, XR CALCANEUS LEFT 2VW OR MORE, XR TIBIA FIBULA LEFT 2VW, DATE/TIME OF EXAM: 01/30/2025 10:42 PM, [facility] INDICATION: T14.90XA: Trauma ADDITIONAL CLINICAL INFORMATION: Ordering Provider Reason For Exam: fx? Technologist Note: Additional: COMPARISON: None. FINDINGS/IMPRESSION: Left knee: Casting material and immobilizer brace are present on the lateral view. The osseous structures are intact and well aligned without acute fracture or dislocation. The knee joint space is preserved. Large amount of subcutaneous emphysema along the anterior aspect of the knee. No large joint effusion is seen. Left tibia/fibula: Acute, comminuted, open fracture of the distal tibial shaft with approximately one shaft width medial displacement of the proximal fracture fragment. There is surrounding subcutaneous emphysema and soft tissue swelling throughout the lower leg. Acute, comminuted, mildly displaced fracture of the distal fibular shaft. Left calcaneus: There is no acute fracture or osseous abnormality. The joint alignment, including the tibiotalar and subtalar articulations, is normal. The soft tissues are normal. Report dictated by Anusha Lowery MD, (campus president). > Dictated by Clinical Care Manager I, Rigo Ferrell MD have personally reviewed and interpreted this examination/study. > Interpreting Provider: Rigo Ferrell MD on 01/31/2025 1:14 AM Procedure Note Rigo Ferrell MD - 01/31/2025 PROCEDURE: XR KNEE LEFT 2VW OR LESS, XR CALCANEUS LEFT 2VW OR MORE, XR TIBIA FIBULA LEFT 2VW, DATE/TIME OF EXAM: 01/30/2025 10:42 PM, [facility] INDICATION: T14.90XA: Trauma ADDITIONAL CLINICAL INFORMATION: Ordering Provider Reason For Exam: fx? Technologist Note: Additional: COMPARISON: None. FINDINGS/IMPRESSION: Left knee: Casting material and immobilizer brace are present on the lateral view.The osseous structures are intact and well aligned without acute fracture or dislocation. The knee joint space is preserved. Large amount of subcutaneous emphysema along the anterior aspect of the knee. No large joint effusion is seen. Left tibia/fibula: Acute, comminuted, open fracture of the distal tibial shaft with approximately one shaft width medial displacement of the proximalfracture fragment. There is surrounding subcutaneous emphysema and soft tissue swelling throughout the lower leg. Acute, comminuted, mildly displaced fracture of the distal fibular shaft. Left calcaneus: There is no acute fracture or osseous abnormality. The joint alignment, including the tibiotalar and subtalar articulations, is normal. The soft tissues are normal. Report dictated by Anusha Lowery MD, (campus president). > Dictated by Clinical Care Manager I, Rigo Ferrell MD have personally reviewed and interpreted this examination/study. > Interpreting Provider: Rigo Ferrell MD on 01/31/2025 1:14 AM Robbi Rodriguez MD DIAGNOSTIC IMAGING ORDERABLES Fi nal Result * XR Knee Left 2Vw or Less (01/30/2025 10:41 PM CDT) Anatomical Region Laterality Modality Lower Extremity Digital Radiogra phy 01/30/2025 10:4 2 PM CDT Narrative 01/31/2025 1:14 AM CDT PROCEDURE: XR KNEE LEFT 2VW OR LESS, XR CALCANEUS LEFT 2VW OR MORE, XR TIBIA FIBULA LEFT 2VW, DATE/TIME OF EXAM: 01/30/2025 10:42 PM, LOCATION [facility] INDICATION: T14.90XA: Trauma ADDITIONAL CLINICAL INFORMATION: Ordering Provider Reason For Exam: fx? Technologist Note: Additional: COMPARISON: None. FINDINGS/IMPRESSION: Left knee: Casting material and immobilizer brace are present on the lateral view. The osseous structures are intact and well aligned without acute fracture or dislocation. The knee joint space is preserved. Large amount of subcutaneous emphysema along the anterior aspect of the knee. No large joint effusion is seen. Left tibia/fibula: Acute, comminuted, open fracture of the distal tibial shaft with approximately one shaft width medial displacement of the proximal fracture fragment. There is surrounding subcutaneous emphysema and soft tissue swelling throughout the lower leg. Acute, comminuted, mildly displaced fracture of the distal fibular shaft. Left calcaneus: There is no acute fracture or osseous abnormality. The joint alignment, including the tibiotalar and subtalar articulations, is normal. The soft tissues are normal. Report dictated by Anusha Lowery MD, (campus president). > Dictated by Clinical Care Manager Rigo Gastelum MD have personally reviewed and interpreted this examination/study. > Interpreting Provider: Rigo Ferrell MD on 01/31/2025 1:14 AM Procedure Note Rigo Ferrell MD - 01/31/2025 PROCEDURE: XR KNEE LEFT 2VW OR LESS, XR CALCANEUS LEFT 2VW OR MORE, XR TIBIA FIBULA LEFT 2VW, DATE/TIME OF EXAM: 01/30/2025 10:42 PM, [facility] INDICATION: T14.90XA: Trauma ADDITIONAL CLINICAL INFORMATION: Ordering Provider Reason For Exam: fx? Technologist Note: Additional: COMPARISON: None. FINDINGS/IMPRESSION: Left knee: Casting material and immobilizer brace are present on the lateral view.The osseous structures are intact and well aligned without acute fracture or dislocation. The knee joint space is preserved. Large amount of subcutaneous emphysema along the anterior aspect of the knee. No large joint effusion is seen. Left tibia/fibula: Acute, comminuted, open fracture of the distal tibial shaft with approximately one shaft width medial displacement of the proximalfracture fragment. There is surrounding subcutaneous emphysema and soft tissue swelling throughout the lower leg. Acute, comminuted, mildly displaced fracture of the distal fibular shaft. Left calcaneus: There is no acute fracture or osseous abnormality. The joint alignment, including the tibiotalar and subtalar articulations, is normal. The soft tissues are normal. Report dictated by Anusha Lowery MD, (campus president). > Dictated by Clinical Care Manager I, Rigo Ferrell MD have personally reviewed and interpreted this examination/study. > Interpreting Provider: Rigo Ferrell MD on 01/31/2025 1:14 AM us Simon Chairez MD DIAGNOSTIC IMAGING ORDERABL ES Final Result * CT CHEST ABDOMEN PELVIS W CONT - Abdomen-pelvis trauma, blunt or penetrating (01/30/2025 9:52 PM CDT) Anatomical Region Laterality Modality Chest, Abdomen, Pelvis Computed Tomography 01/30/2025 9:55 PM CDT Impressions 01/31/2025 12:38 AM CDT Impression: 1.No acute visceral, vascular, or osseus injury identified in the chest, abdomen, or pelvis. 2.Moderate to severe spinal canal stenosis at L2-3 related to posterior vertebral body osteophyte complex formation. 3.Small fat-containing umbilical hernia and fat-containing right inguinal hernia. > Dictated by Foreign Rice DO, (campus president). > Dictated by Clinical Care Manager Elena Gastelum MD have personally reviewed and interpreted this examination/study. > Interpreting Provider: Elena Goel MD on 01/31/2025 12:38 AM Narrative 01/31/2025 12:38 AM CDT PROCEDURE: CT CHEST ABDOMEN PELVIS W CONT, DATE/TIME OF EXAM: 01/30/2025 9:53 PM, LOCATION [facility] INDICATION: T14.90XA: Trauma TECHNIQUE: CT of the chest, abdomen, and pelvis was performed after the uneventful administration of IOPAMIDOL 76 % IV SOLN:100 mL of Isovue 370 intravenous contrast according to standard protocol. COMPARISON: None. Findings: Chest: Lower Neck and Axillae: Postoperative changes of ACDF of the lower cervical spine are partially imaged. Streak artifact related to bilateral shoulder arthroplasty changes obscures much of the lower neck and shoulders. Lungs: Mild bilateral dependent atelectasis is present. An azygos lobe is incidentally noted. Pleural-based nodule of the anterior left upper lobe measuring 1.2 cm contains scattered calcifications, likely benign. Scattered calcified granulomas of the pulmonary parenchyma are also present. No pleural fluid or pneumothorax is present. Heart and Pericardium: The cardiac chambers are normal in size. No pericardial fluid or thickening is present. Mediastinum and Iwona: No mediastinal hemorrhage is present. No enlarged lymph nodes are present. Thoracic Vasculature: The aorta and its branch vessels are minimally atherosclerotic. Abdomen/pelvis: Liver: A subcentimeter hypoattenuating hepatic lesion is too small to characterize, but likely represents a hepatic cyst. Gallbladder and Bile Ducts: Normal. Spleen: Normal. Pancreas: Mildly atrophic but otherwise normal. Adrenals: Normal. Kidneys: Scattered nonobstructing renal calculi bilaterally, no hydronephrosis. Gastrointestinal: The stomach and visualized loops of small bowel are unremarkable. Sigmoid colonic diverticulosis without evidence of diverticulitis is seen. Normal appendix. Mesentery/Peritoneum/Retroperitoneum: No free intraperitoneal air. No free fluid in the abdomen or pelvis. Bladder: Normal. Reproductive Organs: The prostate is partially calcified. Abdominal Vasculature: Atherosclerotic calcification of the aorta and its branch vessels. Bones: Bone windows demonstrate no suspicious lytic or blastic lesions. The visible osseous structures are intact. Degenerative changes are seen in the spine. Anterior cervical fusion of the lower cervical spine. There is sternal deformity, likely represents old healed fracture. Moderate to severe spinal canal stenosis at L2-3 related to posterior vertebral body osteophyte complex formation is noted. Soft tissues: Small fat-containing umbilical hernia and small fat-containing right inguinal hernia. Procedure Note Tesha Goel MD - 01/31/2025 PROCEDURE: CT CHEST ABDOMEN PELVIS W CONT, DATE/TIME OF EXAM:01/30/2025 9:53 PM, LOCATION [facility] INDICATION: T14.90XA: Trauma TECHNIQUE: CT of the chest, abdomen, and pelvis was performed after the uneventful administration of IOPAMIDOL 76 % IV SOLN:100 mL of Isovue 370 intravenous contrast according to standard protocol. COMPARISON: None. Findings: Chest: Lower Neck and Axillae: Postoperative changes of ACDF of the lowercervical spine are partially imaged. Streak artifact related to bilateralshoulder arthroplasty changes obscures much of the lower neck and shoulders. Lungs: Mild bilateral dependent atelectasis is present. An azygos lobeis incidentally noted. Pleural-based nodule of the anterior left upper lobe measuring 1.2 cm contains scattered calcifications, likely benign. Scattered calcified granulomas of the pulmonary parenchyma are also present. No pleural fluid or pneumothorax is present. Heart and Pericardium: The cardiac chambers are normal in size. No pericardial fluid or thickening is present. Mediastinum and Iwona: No mediastinal hemorrhage is present. No enlarged lymph nodes are present. Thoracic Vasculature: The aorta and its branch vessels are minimally atherosclerotic. Abdomen/pelvis: Liver: A subcentimeter hypoattenuating hepatic lesion is too small to characterize, but likely represents a hepatic cyst. Gallbladder and Bile Ducts: Normal. Spleen: Normal. Pancreas: Mildly atrophic but otherwise normal. Adrenals: Normal. Kidneys: Scattered nonobstructing renal calculi bilaterally, no hydronephrosis. Gastrointestinal: The stomach and visualized loops of small bowel are unremarkable. Sigmoid colonic diverticulosis without evidence of diverticulitis is seen. Normal appendix. Mesentery/Peritoneum/Retroperitoneum: No free intraperitoneal air. Nofree fluid in the abdomen or pelvis. Bladder: Normal. Reproductive Organs: The prostate is partially calcified. Abdominal Vasculature: Atherosclerotic calcification of the aorta andits branch vessels. Bones: Bone windows demonstrate no suspicious lytic or blastic lesions.The visible osseous structures are intact. Degenerative changes are seen inthe spine. Anterior cervical fusion of the lower cervical spine. There is sternal deformity, likely represents old healed fracture. Moderate to severe spinal canal stenosis at L2-3 related to posterior vertebral body osteophyte complex formation is noted. Soft tissues: Small fat-containing umbilical hernia and small fat-containing right inguinal hernia. Impression: 1.No acute visceral, vascular, or osseus injury identified in the chest, abdomen, or pelvis. 2.Moderate to severe spinal canal stenosis at L2-3 related to posterior vertebral body osteophyte complex formation. 3.Small fat-containing umbilical hernia and fat-containing rightinguinal hernia. > Dictated by Foreign Rice DO, (campus president). > Dictated by Clinical Care Manager IJin. Daniel Goel MD have personally reviewed and interpreted this examination/study. > Interpreting Provider: Elena Goel MD on 01/31/2025 12:38 AM us Simon Chairez MD CT ORDERABLES Final Resul t * CT LUMBAR SPINE WO CONTRAST - T/L-spine trauma, Spine fracture (01/30/2025 9:52 PM CDT) Anatomical Region Laterality Modality Spine Computed Tomogra phy 01/30/2025 10:0 7 PM CDT Impressions 01/30/2025 10:25 PM CDT IMPRESSION: 1. No acute intracranial process. 2. No acute facial bone fractures identified. A large right frontal/right lateral periorbital scalp hematoma. Right inferolateral periorbital and right frontal skin lacerations with small punctated radiopaque foreign bodies in the wound. 3. No evidence of acute fracture in the cervical, thoracic, or lumbar spine. 4. Multiple chronic findings as detailed in the report. > Interpreting Provider: Sheldon Mosqueda MD on 01/30/2025 10:25 PM Narrative 01/30/2025 10:25 PM CDT PROCEDURE: CT HEAD WO CONTRAST, CT FACIAL BONES WO CONTRAST, CT LUMBAR SPINE WO CONTRAST, CT THORACIC SPINE WO CONTRAST, CT CERVICAL SPINE WO CONTRAST, DATE/TIME OF EXAM: 01/30/2025 9:53 PM, LOCATION [facility] INDICATION: T14.90XA: Trauma ADDITIONAL CLINICAL INFORMATION: Ordering Provider Reason For Exam: Technologist Note: Additional: EXAMINATION: 1. Computed tomography (CT) of the head without contrast 2. CT of the maxillofacial bones, orbits, and paranasal sinuses without contrast 3. CT of the cervical spine without contrast 4. CT of the thoracic spine without contrast 5. CT of the lumbar spine without contrast TECHNIQUE: CT of the head, cervical spine, and maxillofacial bones, orbits, and paranasal sinuses was performed without contrast according to standard protocol. Reformatted axial, sagittal, and coronal images of the thoracic and lumbar spine were obtained by the technologist from a concurrently performed body CT and sent to the workstation for review. COMPARISON: No prior study is available for comparison at the time of this dictation. FINDINGS: Head: No acute intracranial hemorrhage or intra- or extra-axial fluid collections are identified. The ventricles are of normal size, shape, and morphology. The basal cisterns are patent. No mass effect or midline shift is seen. The huerta-white matter differentiation is normal. Periventricular white matter hypoattenuation is a nonspecific finding that may be indicative of chronic small vessel ischemic disease. There is atherosclerotic calcification of the carotid siphons. 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 No acute calvarial fracture is identified. A large right frontal/right lateral periorbital scalp hematoma. Maxillofacial: Right inferolateral periorbital and right frontal skin lacerations with small punctated radiopaque foreign bodies in the wound. The orbits including the globes, optic nerves, retrobulbar fat and extraocular muscles appear normal. The paranasal sinuses are clear. The hard palate, mandible, and temporomandibular joints appear normal. The mastoid air cells are clear. The patient is edentulous. Cervical spine: No soft tissue abnormality is identified. Postoperative changes of anterior cervical discectomy and fusion at C4-C6 without evidence of instrumentation failure. The alignment is near anatomic. The prevertebral soft tissue is normal in thickness. The bones are mildly osteopenic. Vertebral bodies are normal in height without evidence of acute fracture. Other than middle atlantoaxial joint osteoarthritis, the craniocervical junction appears normal. There is moderate to severe multilevel degenerative disc disease. The central canal is severely stenotic at multiple levels. There are varying degrees of moderate to severe multiple facet osteoarthritis. There are varying degrees of moderate to severe multilevel uncovertebral joint osteoarthritis with the same degree of neural foraminal stenosis at these levels. Thoracic spine: There is subsegmental atelectasis in the dependent portions of the lung bases. Mild dextroscoliosis. Slightly exaggerated thoracic kyphosis. The bones are mildly osteopenic. Vertebral bodies are normal in height without evidence of acute fracture. There is mild multilevel degenerative disc disease. Bridging syndesmophytes and ossification of the anterior longitudinal ligament at multiple levels suggest diffuse idiopathic skeletal hyperostosis (DISH). The central canal is patent. There are varying degrees of up to moderate facet osteoarthritis with the same degree of neural foraminal stenosis at these levels. Lumbar spine: Postoperative changes of laminectomies at C3-C5. There is atherosclerotic calcification of the abdominal aorta and its branch vessels. Multiple nonobstructing calculi in the kidneys bilaterally. Incompletely imaged diverticulosis of the colon without evidence of diverticulitis. Mild levoscoliosis. The bones are mildly osteopenic. Vertebral bodies are normal in height without evidence of acute fracture. There is up to severe multilevel degenerative disc disease. The central canal is moderately stenotic at multiple levels due to a combination of degenerative disc and joint disease and congenital shortening of pedicles. There are varying degrees of up to severe facet osteoarthritis with the same degree of neural foraminal stenosis at these levels. Procedure Note Sheldon Mosqueda MD - 01/30/2025 PROCEDURE: CT HEAD WO CONTRAST, CT FACIAL BONES WO CONTRAST, CT LUMBAR SPINE WO CONTRAST, CT THORACIC SPINE WO CONTRAST, CT CERVICAL SPINE WO CONTRAST, DATE/TIME OF EXAM: 01/30/2025 9:53 PM, LOCATION [facility] INDICATION: T14.90XA: Trauma ADDITIONAL CLINICAL INFORMATION: Ordering Provider Reason For Exam: Technologist Note: Additional: EXAMINATION: 1. Computed tomography (CT) of the head without contrast 2. CT of the maxillofacial bones, orbits, and paranasal sinuses without contrast 3. CT of the cervical spine without contrast 4. CT of the thoracic spine without contrast 5. CT of the lumbar spine without contrast TECHNIQUE: CT of the head, cervical spine, and maxillofacial bones,orbits, and paranasal sinuses was performed without contrast according tostandard protocol. Reformatted axial, sagittal, and coronal images of thethoracic and lumbar spine were obtained by the technologist from a concurrently performed body CT and sent to the workstation for review. COMPARISON: No prior study is available for comparison at the time ofthis dictation. FINDINGS: Head: No acute intracranial hemorrhage or intra- or extra-axial fluidcollections are identified. The ventricles are of normal size, shape, andmorphology. The basal cisterns are patent. No mass effect or midline shift is seen.The huerta-white matter differentiation is normal. Periventricular whitematter hypoattenuation is a nonspecific finding that may be indicative ofchronic small vessel ischemic disease. There is atherosclerotic calcification of the carotid siphons. A small chronic infarct in the left anteriorcoronal radiata. No acute calvarial fracture is identified. A large right frontal/right lateral periorbital scalp hematoma. Maxillofacial: Right inferolateral periorbital and right frontal skin lacerations with small punctated radiopaque foreign bodies in the wound. The orbits including the globes, optic nerves, retrobulbar fat and extraocular muscles appear normal. The paranasal sinuses are clear. The hard palate, mandible, and temporomandibular joints appear normal. The mastoid air cells are clear. The patient is edentulous. Cervical spine: No soft tissue abnormality is identified. Postoperative changes of anterior cervical discectomy and fusion atC4-C6 without evidence of instrumentation failure. The alignment is near anatomic. The prevertebral soft tissue is normalin thickness. The bones are mildly osteopenic. Vertebral bodies are normalin height without evidence of acute fracture. Other than middleatlantoaxial joint osteoarthritis, the craniocervical junction appears normal. Thereis moderate to severe multilevel degenerative disc disease. The centralcanal is severely stenotic at multiple levels. There are varying degrees of moderate to severe multiple facet osteoarthritis. There are varyingdegrees of moderate to severe multilevel uncovertebral joint osteoarthritis with the same degree of neural foraminal stenosis at these levels. Thoracic spine: There is subsegmental atelectasis in the dependent portions of the lung bases. Mild dextroscoliosis. Slightly exaggerated thoracic kyphosis. The bonesare mildly osteopenic. Vertebral bodies are normal in height withoutevidence of acute fracture. There is mild multilevel degenerative disc disease. Bridging syndesmophytes and ossification of the anterior longitudinal ligament at multiple levels suggest diffuse idiopathic skeletal hyperostosis (DISH). The central canal is patent. There are varying degrees of up to moderate facet osteoarthritis with the same degree of neural foraminal stenosis at these levels. Lumbar spine: Postoperative changes of laminectomies at C3-C5. There is atherosclerotic calcification of the abdominal aorta and its branch vessels. Multiple nonobstructing calculi in the kidneysbilaterally. Incompletely imaged diverticulosis of the colon without evidence of diverticulitis. Mild levoscoliosis. The bones are mildly osteopenic. Vertebral bodiesare normal in height without evidence of acute fracture. There is up tosevere multilevel degenerative disc disease. The central canal is moderately stenotic at multiple levels due to a combination of degenerative discand joint disease and congenital shortening of pedicles. There are varying degrees of up to severe facet osteoarthritis with the same degree ofneural foraminal stenosis at these levels. IMPRESSION: 1. No acute intracranial process. 2. No acute facial bone fractures identified. A large rightfrontal/right lateral periorbital scalp hematoma. Right inferolateral periorbital and right frontal skin lacerations with small punctated radiopaque foreign bodies in the wound. 3. No evidence of acute fracture in the cervical, thoracic, or lumbar spine. 4. Multiple chronic findings as detailed in the report. > Interpreting Provider: Sheldon Mosqueda MD on 01/30/2025 10:25 PM us Simon Chairez MD CT ORDERABLES Final Resul t * CT THORACIC SPINE WO CONTRAST - T/L-spine trauma, spine fracture (01/30/2025 9:52 PM CDT) Anatomical Region Laterality Modality Spine Computed Tomogra phy 01/30/2025 10:0 7 PM CDT Impressions 01/30/2025 10:25 PM CDT IMPRESSION: 1. No acute intracranial process. 2. No acute facial bone fractures identified. A large right frontal/right lateral periorbital scalp hematoma. Right inferolateral periorbital and right frontal skin lacerations with small punctated radiopaque foreign bodies in the wound. 3. No evidence of acute fracture in the cervical, thoracic, or lumbar spine. 4. Multiple chronic findings as detailed in the report. > Interpreting Provider: Sheldon Mosqueda MD on 01/30/2025 10:25 PM Narrative 01/30/2025 10:25 PM CDT PROCEDURE: CT HEAD WO CONTRAST, CT FACIAL BONES WO CONTRAST, CT LUMBAR SPINE WO CONTRAST, CT THORACIC SPINE WO CONTRAST, CT CERVICAL SPINE WO CONTRAST, DATE/TIME OF EXAM: 01/30/2025 9:53 PM, LOCATION [facility] INDICATION: T14.90XA: Trauma ADDITIONAL CLINICAL INFORMATION: Ordering Provider Reason For Exam: Technologist Note: Additional: EXAMINATION: 1. Computed tomography (CT) of the head without contrast 2. CT of the maxillofacial bones, orbits, and paranasal sinuses without contrast 3. CT of the cervical spine without contrast 4. CT of the thoracic spine without contrast 5. CT of the lumbar spine without contrast TECHNIQUE: CT of the head, cervical spine, and maxillofacial bones, orbits, and paranasal sinuses was performed without contrast according to standard protocol. Reformatted axial, sagittal, and coronal images of the thoracic and lumbar spine were obtained by the technologist from a concurrently performed body CT and sent to the workstation for review. COMPARISON: No prior study is available for comparison at the time of this dictation. FINDINGS: Head: No acute intracranial hemorrhage or intra- or extra-axial fluid collections are identified. The ventricles are of normal size, shape, and morphology. The basal cisterns are patent. No mass effect or midline shift is seen. The huerta-white matter differentiation is normal. Periventricular white matter hypoattenuation is a nonspecific finding that may be indicative of chronic small vessel ischemic disease. There is atherosclerotic calcification of the carotid siphons. 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 No acute calvarial fracture is identified. A large right frontal/right lateral periorbital scalp hematoma. Maxillofacial: Right inferolateral periorbital and right frontal skin lacerations with small punctated radiopaque foreign bodies in the wound. The orbits including the globes, optic nerves, retrobulbar fat and extraocular muscles appear normal. The paranasal sinuses are clear. The hard palate, mandible, and temporomandibular joints appear normal. The mastoid air cells are clear. The patient is edentulous. Cervical spine: No soft tissue abnormality is identified. Postoperative changes of anterior cervical discectomy and fusion at C4-C6 without evidence of instrumentation failure. The alignment is near anatomic. The prevertebral soft tissue is normal in thickness. The bones are mildly osteopenic. Vertebral bodies are normal in height without evidence of acute fracture. Other than middle atlantoaxial joint osteoarthritis, the craniocervical junction appears normal. There is moderate to severe multilevel degenerative disc disease. The central canal is severely stenotic at multiple levels. There are varying degrees of moderate to severe multiple facet osteoarthritis. There are varying degrees of moderate to severe multilevel uncovertebral joint osteoarthritis with the same degree of neural foraminal stenosis at these levels. Thoracic spine: There is subsegmental atelectasis in the dependent portions of the lung bases. Mild dextroscoliosis. Slightly exaggerated thoracic kyphosis. The bones are mildly osteopenic. Vertebral bodies are normal in height without evidence of acute fracture. There is mild multilevel degenerative disc disease. Bridging syndesmophytes and ossification of the anterior longitudinal ligament at multiple levels suggest diffuse idiopathic skeletal hyperostosis (DISH). The central canal is patent. There are varying degrees of up to moderate facet osteoarthritis with the same degree of neural foraminal stenosis at these levels. Lumbar spine: Postoperative changes of laminectomies at C3-C5. There is atherosclerotic calcification of the abdominal aorta and its branch vessels. Multiple nonobstructing calculi in the kidneys bilaterally. Incompletely imaged diverticulosis of the colon without evidence of diverticulitis. Mild levoscoliosis. The bones are mildly osteopenic. Vertebral bodies are normal in height without evidence of acute fracture. There is up to severe multilevel degenerative disc disease. The central canal is moderately stenotic at multiple levels due to a combination of degenerative disc and joint disease and congenital shortening of pedicles. There are varying degrees of up to severe facet osteoarthritis with the same degree of neural foraminal stenosis at these levels. Procedure Note Sheldon Mosqueda MD - 01/30/2025 PROCEDURE: CT HEAD WO CONTRAST, CT FACIAL BONES WO CONTRAST, CT LUMBAR SPINE WO CONTRAST, CT THORACIC SPINE WO CONTRAST, CT CERVICAL SPINE WO CONTRAST, DATE/TIME OF EXAM: 01/30/2025 9:53 PM, LOCATION [facility] INDICATION: T14.90XA: Trauma ADDITIONAL CLINICAL INFORMATION: Ordering Provider Reason For Exam: Technologist Note: Additional: EXAMINATION: 1. Computed tomography (CT) of the head without contrast 2. CT of the maxillofacial bones, orbits, and paranasal sinuses without contrast 3. CT of the cervical spine without contrast 4. CT of the thoracic spine without contrast 5. CT of the lumbar spine without contrast TECHNIQUE: CT of the head, cervical spine, and maxillofacial bones,orbits, and paranasal sinuses was performed without contrast according tostandard protocol. Reformatted axial, sagittal, and coronal images of thethoracic and lumbar spine were obtained by the technologist from a concurrently performed body CT and sent to the workstation for review. COMPARISON: No prior study is available for comparison at the time ofthis dictation. FINDINGS: Head: No acute intracranial hemorrhage or intra- or extra-axial fluidcollections are identified. The ventricles are of normal size, shape, andmorphology. The basal cisterns are patent. No mass effect or midline shift is seen.The huerta-white matter differentiation is normal. Periventricular whitematter hypoattenuation is a nonspecific finding that may be indicative ofchronic small vessel ischemic disease. There is atherosclerotic calcification of the carotid siphons. A small chronic infarct in the left anteriorcoronal radiata. No acute calvarial fracture is identified. A large right frontal/right lateral periorbital scalp hematoma. Maxillofacial: Right inferolateral periorbital and right frontal skin lacerations with small punctated radiopaque foreign bodies in the wound. The orbits including the globes, optic nerves, retrobulbar fat and extraocular muscles appear normal. The paranasal sinuses are clear. The hard palate, mandible, and temporomandibular joints appear normal. The mastoid air cells are clear. The patient is edentulous. Cervical spine: No soft tissue abnormality is identified. Postoperative changes of anterior cervical discectomy and fusion atC4-C6 without evidence of instrumentation failure. The alignment is near anatomic. The prevertebral soft tissue is normalin thickness. The bones are mildly osteopenic. Vertebral bodies are normalin height without evidence of acute fracture. Other than middleatlantoaxial joint osteoarthritis, the craniocervical junction appears normal. Thereis moderate to severe multilevel degenerative disc disease. The centralcanal is severely stenotic at multiple levels. There are varying degrees of moderate to severe multiple facet osteoarthritis. There are varyingdegrees of moderate to severe multilevel uncovertebral joint osteoarthritis with the same degree of neural foraminal stenosis at these levels. Thoracic spine: There is subsegmental atelectasis in the dependent portions of the lung bases. Mild dextroscoliosis. Slightly exaggerated thoracic kyphosis. The bonesare mildly osteopenic. Vertebral bodies are normal in height withoutevidence of acute fracture. There is mild multilevel degenerative disc disease. Bridging syndesmophytes and ossification of the anterior longitudinal ligament at multiple levels suggest diffuse idiopathic skeletal hyperostosis (DISH). The central canal is patent. There are varying degrees of up to moderate facet osteoarthritis with the same degree of neural foraminal stenosis at these levels. Lumbar spine: Postoperative changes of laminectomies at C3-C5. There is atherosclerotic calcification of the abdominal aorta and its branch vessels. Multiple nonobstructing calculi in the kidneysbilaterally. Incompletely imaged diverticulosis of the colon without evidence of diverticulitis. Mild levoscoliosis. The bones are mildly osteopenic. Vertebral bodiesare normal in height without evidence of acute fracture. There is up tosevere multilevel degenerative disc disease. The central canal is moderately stenotic at multiple levels due to a combination of degenerative discand joint disease and congenital shortening of pedicles. There are varying degrees of up to severe facet osteoarthritis with the same degree ofneural foraminal stenosis at these levels. IMPRESSION: 1. No acute intracranial process. 2. No acute facial bone fractures identified. A large rightfrontal/right lateral periorbital scalp hematoma. Right inferolateral periorbital and right frontal skin lacerations with small punctated radiopaque foreign bodies in the wound. 3. No evidence of acute fracture in the cervical, thoracic, or lumbar spine. 4. Multiple chronic findings as detailed in the report. > Interpreting Provider: Sheldon Mosqueda MD on 01/30/2025 10:25 PM us Simon Chairez MD CT ORDERABLES Final Resul t * CT CERVICAL SPINE WO CONTRAST - C-Spine Trauma, Spine fracture (01/30/2025 9:52 PM CDT) Anatomical Region Laterality Modality Spine Computed Tomogra phy 01/30/2025 10:0 7 PM CDT Impressions 01/30/2025 10:25 PM CDT IMPRESSION: 1. No acute intracranial process. 2. No acute facial bone fractures identified. A large right frontal/right lateral periorbital scalp hematoma. Right inferolateral periorbital and right frontal skin lacerations with small punctated radiopaque foreign bodies in the wound. 3. No evidence of acute fracture in the cervical, thoracic, or lumbar spine. 4. Multiple chronic findings as detailed in the report. > Interpreting Provider: Sheldon Mosqueda MD on 01/30/2025 10:25 PM Narrative 01/30/2025 10:25 PM CDT PROCEDURE: CT HEAD WO CONTRAST, CT FACIAL BONES WO CONTRAST, CT LUMBAR SPINE WO CONTRAST, CT THORACIC SPINE WO CONTRAST, CT CERVICAL SPINE WO CONTRAST, DATE/TIME OF EXAM: 01/30/2025 9:53 PM, LOCATION [facility] INDICATION: T14.90XA: Trauma ADDITIONAL CLINICAL INFORMATION: Ordering Provider Reason For Exam: Technologist Note: Additional: EXAMINATION: 1. Computed tomography (CT) of the head without contrast 2. CT of the maxillofacial bones, orbits, and paranasal sinuses without contrast 3. CT of the cervical spine without contrast 4. CT of the thoracic spine without contrast 5. CT of the lumbar spine without contrast TECHNIQUE: CT of the head, cervical spine, and maxillofacial bones, orbits, and paranasal sinuses was performed without contrast according to standard protocol. Reformatted axial, sagittal, and coronal images of the thoracic and lumbar spine were obtained by the technologist from a concurrently performed body CT and sent to the workstation for review. COMPARISON: No prior study is available for comparison at the time of this dictation. FINDINGS: Head: No acute intracranial hemorrhage or intra- or extra-axial fluid collections are identified. The ventricles are of normal size, shape, and morphology. The basal cisterns are patent. No mass effect or midline shift is seen. The huerta-white matter differentiation is normal. Periventricular white matter hypoattenuation is a nonspecific finding that may be indicative of chronic small vessel ischemic disease. There is atherosclerotic calcification of the carotid siphons. 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 No acute calvarial fracture is identified. A large right frontal/right lateral periorbital scalp hematoma. Maxillofacial: Right inferolateral periorbital and right frontal skin lacerations with small punctated radiopaque foreign bodies in the wound. The orbits including the globes, optic nerves, retrobulbar fat and extraocular muscles appear normal. The paranasal sinuses are clear. The hard palate, mandible, and temporomandibular joints appear normal. The mastoid air cells are clear. The patient is edentulous. Cervical spine: No soft tissue abnormality is identified. Postoperative changes of anterior cervical discectomy and fusion at C4-C6 without evidence of instrumentation failure. The alignment is near anatomic. The prevertebral soft tissue is normal in thickness. The bones are mildly osteopenic. Vertebral bodies are normal in height without evidence of acute fracture. Other than middle atlantoaxial joint osteoarthritis, the craniocervical junction appears normal. There is moderate to severe multilevel degenerative disc disease. The central canal is severely stenotic at multiple levels. There are varying degrees of moderate to severe multiple facet osteoarthritis. There are varying degrees of moderate to severe multilevel uncovertebral joint osteoarthritis with the same degree of neural foraminal stenosis at these levels. Thoracic spine: There is subsegmental atelectasis in the dependent portions of the lung bases. Mild dextroscoliosis. Slightly exaggerated thoracic kyphosis. The bones are mildly osteopenic. Vertebral bodies are normal in height without evidence of acute fracture. There is mild multilevel degenerative disc disease. Bridging syndesmophytes and ossification of the anterior longitudinal ligament at multiple levels suggest diffuse idiopathic skeletal hyperostosis (DISH). The central canal is patent. There are varying degrees of up to moderate facet osteoarthritis with the same degree of neural foraminal stenosis at these levels. Lumbar spine: Postoperative changes of laminectomies at C3-C5. There is atherosclerotic calcification of the abdominal aorta and its branch vessels. Multiple nonobstructing calculi in the kidneys bilaterally. Incompletely imaged diverticulosis of the colon without evidence of diverticulitis. Mild levoscoliosis. The bones are mildly osteopenic. Vertebral bodies are normal in height without evidence of acute fracture. There is up to severe multilevel degenerative disc disease. The central canal is moderately stenotic at multiple levels due to a combination of degenerative disc and joint disease and congenital shortening of pedicles. There are varying degrees of up to severe facet osteoarthritis with the same degree of neural foraminal stenosis at these levels. Procedure Note Sheldon Mosqueda MD - 01/30/2025 PROCEDURE: CT HEAD WO CONTRAST, CT FACIAL BONES WO CONTRAST, CT LUMBAR SPINE WO CONTRAST, CT THORACIC SPINE WO CONTRAST, CT CERVICAL SPINE WO CONTRAST, DATE/TIME OF EXAM: 01/30/2025 9:53 PM, LOCATION [facility] INDICATION: T14.90XA: Trauma ADDITIONAL CLINICAL INFORMATION: Ordering Provider Reason For Exam: Technologist Note: Additional: EXAMINATION: 1. Computed tomography (CT) of the head without contrast 2. CT of the maxillofacial bones, orbits, and paranasal sinuses without contrast 3. CT of the cervical spine without contrast 4. CT of the thoracic spine without contrast 5. CT of the lumbar spine without contrast TECHNIQUE: CT of the head, cervical spine, and maxillofacial bones,orbits, and paranasal sinuses was performed without contrast according tostandard protocol. Reformatted axial, sagittal, and coronal images of thethoracic and lumbar spine were obtained by the technologist from a concurrently performed body CT and sent to the workstation for review. COMPARISON: No prior study is available for comparison at the time ofthis dictation. FINDINGS: Head: No acute intracranial hemorrhage or intra- or extra-axial fluidcollections are identified. The ventricles are of normal size, shape, andmorphology. The basal cisterns are patent. No mass effect or midline shift is seen.The huerta-white matter differentiation is normal. Periventricular whitematter hypoattenuation is a nonspecific finding that may be indicative ofchronic small vessel ischemic disease. There is atherosclerotic calcification of the carotid siphons. A small chronic infarct in the left anteriorcoronal radiata. No acute calvarial fracture is identified. A large right frontal/right lateral periorbital scalp hematoma. Maxillofacial: Right inferolateral periorbital and right frontal skin lacerations with small punctated radiopaque foreign bodies in the wound. The orbits including the globes, optic nerves, retrobulbar fat and extraocular muscles appear normal. The paranasal sinuses are clear. The hard palate, mandible, and temporomandibular joints appear normal. The mastoid air cells are clear. The patient is edentulous. Cervical spine: No soft tissue abnormality is identified. Postoperative changes of anterior cervical discectomy and fusion atC4-C6 without evidence of instrumentation failure. The alignment is near anatomic. The prevertebral soft tissue is normalin thickness. The bones are mildly osteopenic. Vertebral bodies are normalin height without evidence of acute fracture. Other than middleatlantoaxial joint osteoarthritis, the craniocervical junction appears normal. Thereis moderate to severe multilevel degenerative disc disease. The centralcanal is severely stenotic at multiple levels. There are varying degrees of moderate to severe multiple facet osteoarthritis. There are varyingdegrees of moderate to severe multilevel uncovertebral joint osteoarthritis with the same degree of neural foraminal stenosis at these levels. Thoracic spine: There is subsegmental atelectasis in the dependent portions of the lung bases. Mild dextroscoliosis. Slightly exaggerated thoracic kyphosis. The bonesare mildly osteopenic. Vertebral bodies are normal in height withoutevidence of acute fracture. There is mild multilevel degenerative disc disease. Bridging syndesmophytes and ossification of the anterior longitudinal ligament at multiple levels suggest diffuse idiopathic skeletal hyperostosis (DISH). The central canal is patent. There are varying degrees of up to moderate facet osteoarthritis with the same degree of neural foraminal stenosis at these levels. Lumbar spine: Postoperative changes of laminectomies at C3-C5. There is atherosclerotic calcification of the abdominal aorta and its branch vessels. Multiple nonobstructing calculi in the kidneysbilaterally. Incompletely imaged diverticulosis of the colon without evidence of diverticulitis. Mild levoscoliosis. The bones are mildly osteopenic. Vertebral bodiesare normal in height without evidence of acute fracture. There is up tosevere multilevel degenerative disc disease. The central canal is moderately stenotic at multiple levels due to a combination of degenerative discand joint disease and congenital shortening of pedicles. There are varying degrees of up to severe facet osteoarthritis with the same degree ofneural foraminal stenosis at these levels. IMPRESSION: 1. No acute intracranial process. 2. No acute facial bone fractures identified. A large rightfrontal/right lateral periorbital scalp hematoma. Right inferolateral periorbital and right frontal skin lacerations with small punctated radiopaque foreign bodies in the wound. 3. No evidence of acute fracture in the cervical, thoracic, or lumbar spine. 4. Multiple chronic findings as detailed in the report. > Interpreting Provider: Sheldon Mosqueda MD on 01/30/2025 10:25 PM us Simon Chairez MD CT ORDERABLES Final Resul t * CT FACIAL BONES WO CONTRAST - Facial trauma, fx suspected, blunt (01/30/2025 9:52 PM CDT) Anatomical Region Laterality Modality Head Computed Tomogra phy 01/30/2025 10:0 7 PM CDT Impressions 01/30/2025 10:25 PM CDT IMPRESSION: 1. No acute intracranial process. 2. No acute facial bone fractures identified. A large right frontal/right lateral periorbital scalp hematoma. Right inferolateral periorbital and right frontal skin lacerations with small punctated radiopaque foreign bodies in the wound. 3. No evidence of acute fracture in the cervical, thoracic, or lumbar spine. 4. Multiple chronic findings as detailed in the report. > Interpreting Provider: Sheldon Mosqueda MD on 01/30/2025 10:25 PM Narrative 01/30/2025 10:25 PM CDT PROCEDURE: CT HEAD WO CONTRAST, CT FACIAL BONES WO CONTRAST, CT LUMBAR SPINE WO CONTRAST, CT THORACIC SPINE WO CONTRAST, CT CERVICAL SPINE WO CONTRAST, DATE/TIME OF EXAM: 01/30/2025 9:53 PM, LOCATION [facility] INDICATION: T14.90XA: Trauma ADDITIONAL CLINICAL INFORMATION: Ordering Provider Reason For Exam: Technologist Note: Additional: EXAMINATION: 1. Computed tomography (CT) of the head without contrast 2. CT of the maxillofacial bones, orbits, and paranasal sinuses without contrast 3. CT of the cervical spine without contrast 4. CT of the thoracic spine without contrast 5. CT of the lumbar spine without contrast TECHNIQUE: CT of the head, cervical spine, and maxillofacial bones, orbits, and paranasal sinuses was performed without contrast according to standard protocol. Reformatted axial, sagittal, and coronal images of the thoracic and lumbar spine were obtained by the technologist from a concurrently performed body CT and sent to the workstation for review. COMPARISON: No prior study is available for comparison at the time of this dictation. FINDINGS: Head: No acute intracranial hemorrhage or intra- or extra-axial fluid collections are identified. The ventricles are of normal size, shape, and morphology. The basal cisterns are patent. No mass effect or midline shift is seen. The huerta-white matter differentiation is normal. Periventricular white matter hypoattenuation is a nonspecific finding that may be indicative of chronic small vessel ischemic disease. There is atherosclerotic calcification of the carotid siphons. 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 No acute calvarial fracture is identified. A large right frontal/right lateral periorbital scalp hematoma. Maxillofacial: Right inferolateral periorbital and right frontal skin lacerations with small punctated radiopaque foreign bodies in the wound. The orbits including the globes, optic nerves, retrobulbar fat and extraocular muscles appear normal. The paranasal sinuses are clear. The hard palate, mandible, and temporomandibular joints appear normal. The mastoid air cells are clear. The patient is edentulous. Cervical spine: No soft tissue abnormality is identified. Postoperative changes of anterior cervical discectomy and fusion at C4-C6 without evidence of instrumentation failure. The alignment is near anatomic. The prevertebral soft tissue is normal in thickness. The bones are mildly osteopenic. Vertebral bodies are normal in height without evidence of acute fracture. Other than middle atlantoaxial joint osteoarthritis, the craniocervical junction appears normal. There is moderate to severe multilevel degenerative disc disease. The central canal is severely stenotic at multiple levels. There are varying degrees of moderate to severe multiple facet osteoarthritis. There are varying degrees of moderate to severe multilevel uncovertebral joint osteoarthritis with the same degree of neural foraminal stenosis at these levels. Thoracic spine: There is subsegmental atelectasis in the dependent portions of the lung bases. Mild dextroscoliosis. Slightly exaggerated thoracic kyphosis. The bones are mildly osteopenic. Vertebral bodies are normal in height without evidence of acute fracture. There is mild multilevel degenerative disc disease. Bridging syndesmophytes and ossification of the anterior longitudinal ligament at multiple levels suggest diffuse idiopathic skeletal hyperostosis (DISH). The central canal is patent. There are varying degrees of up to moderate facet osteoarthritis with the same degree of neural foraminal stenosis at these levels. Lumbar spine: Postoperative changes of laminectomies at C3-C5. There is atherosclerotic calcification of the abdominal aorta and its branch vessels. Multiple nonobstructing calculi in the kidneys bilaterally. Incompletely imaged diverticulosis of the colon without evidence of diverticulitis. Mild levoscoliosis. The bones are mildly osteopenic. Vertebral bodies are normal in height without evidence of acute fracture. There is up to severe multilevel degenerative disc disease. The central canal is moderately stenotic at multiple levels due to a combination of degenerative disc and joint disease and congenital shortening of pedicles. There are varying degrees of up to severe facet osteoarthritis with the same degree of neural foraminal stenosis at these levels. Procedure Note Sheldon Mosqueda MD - 01/30/2025 PROCEDURE: CT HEAD WO CONTRAST, CT FACIAL BONES WO CONTRAST, CT LUMBAR SPINE WO CONTRAST, CT THORACIC SPINE WO CONTRAST, CT CERVICAL SPINE WO CONTRAST, DATE/TIME OF EXAM: 01/30/2025 9:53 PM, LOCATION [facility] INDICATION: T14.90XA: Trauma ADDITIONAL CLINICAL INFORMATION: Ordering Provider Reason For Exam: Technologist Note: Additional: EXAMINATION: 1. Computed tomography (CT) of the head without contrast 2. CT of the maxillofacial bones, orbits, and paranasal sinuses without contrast 3. CT of the cervical spine without contrast 4. CT of the thoracic spine without contrast 5. CT of the lumbar spine without contrast TECHNIQUE: CT of the head, cervical spine, and maxillofacial bones,orbits, and paranasal sinuses was performed without contrast according tostandard protocol. Reformatted axial, sagittal, and coronal images of thethoracic and lumbar spine were obtained by the technologist from a concurrently performed body CT and sent to the workstation for review. COMPARISON: No prior study is available for comparison at the time ofthis dictation. FINDINGS: Head: No acute intracranial hemorrhage or intra- or extra-axial fluidcollections are identified. The ventricles are of normal size, shape, andmorphology. The basal cisterns are patent. No mass effect or midline shift is seen.The huerta-white matter differentiation is normal. Periventricular whitematter hypoattenuation is a nonspecific finding that may be indicative ofchronic small vessel ischemic disease. There is atherosclerotic calcification of the carotid siphons. A small chronic infarct in the left anteriorcoronal radiata. No acute calvarial fracture is identified. A large right frontal/right lateral periorbital scalp hematoma. Maxillofacial: Right inferolateral periorbital and right frontal skin lacerations with small punctated radiopaque foreign bodies in the wound. The orbits including the globes, optic nerves, retrobulbar fat and extraocular muscles appear normal. The paranasal sinuses are clear. The hard palate, mandible, and temporomandibular joints appear normal. The mastoid air cells are clear. The patient is edentulous. Cervical spine: No soft tissue abnormality is identified. Postoperative changes of anterior cervical discectomy and fusion atC4-C6 without evidence of instrumentation failure. The alignment is near anatomic. The prevertebral soft tissue is normalin thickness. The bones are mildly osteopenic. Vertebral bodies are normalin height without evidence of acute fracture. Other than middleatlantoaxial joint osteoarthritis, the craniocervical junction appears normal. Thereis moderate to severe multilevel degenerative disc disease. The centralcanal is severely stenotic at multiple levels. There are varying degrees of moderate to severe multiple facet osteoarthritis. There are varyingdegrees of moderate to severe multilevel uncovertebral joint osteoarthritis with the same degree of neural foraminal stenosis at these levels. Thoracic spine: There is subsegmental atelectasis in the dependent portions of the lung bases. Mild dextroscoliosis. Slightly exaggerated thoracic kyphosis. The bonesare mildly osteopenic. Vertebral bodies are normal in height withoutevidence of acute fracture. There is mild multilevel degenerative disc disease. Bridging syndesmophytes and ossification of the anterior longitudinal ligament at multiple levels suggest diffuse idiopathic skeletal hyperostosis (DISH). The central canal is patent. There are varying degrees of up to moderate facet osteoarthritis with the same degree of neural foraminal stenosis at these levels. Lumbar spine: Postoperative changes of laminectomies at C3-C5. There is atherosclerotic calcification of the abdominal aorta and its branch vessels. Multiple nonobstructing calculi in the kidneysbilaterally. Incompletely imaged diverticulosis of the colon without evidence of diverticulitis. Mild levoscoliosis. The bones are mildly osteopenic. Vertebral bodiesare normal in height without evidence of acute fracture. There is up tosevere multilevel degenerative disc disease. The central canal is moderately stenotic at multiple levels due to a combination of degenerative discand joint disease and congenital shortening of pedicles. There are varying degrees of up to severe facet osteoarthritis with the same degree ofneural foraminal stenosis at these levels. IMPRESSION: 1. No acute intracranial process. 2. No acute facial bone fractures identified. A large rightfrontal/right lateral periorbital scalp hematoma. Right inferolateral periorbital and right frontal skin lacerations with small punctated radiopaque foreign bodies in the wound. 3. No evidence of acute fracture in the cervical, thoracic, or lumbar spine. 4. Multiple chronic findings as detailed in the report. > Interpreting Provider: Sheldon Mosqueda MD on 01/30/2025 10:25 PM Simon Chairez MD CT ORDERABLES Final Resul t * CT HEAD WO CONTRAST - Head Trauma, CSF leak, mental status changes (01/30/2025 9:52 PM CDT) Anatomical Region Laterality Modality Head Computed Tomogra phy 01/30/2025 10:0 7 PM CDT Impressions 01/30/2025 10:25 PM CDT IMPRESSION: 1. No acute intracranial process. 2. No acute facial bone fractures identified. A large right frontal/right lateral periorbital scalp hematoma. Right inferolateral periorbital and right frontal skin lacerations with small punctated radiopaque foreign bodies in the wound. 3. No evidence of acute fracture in the cervical, thoracic, or lumbar spine. 4. Multiple chronic findings as detailed in the report. > Interpreting Provider: Sheldon Mosqueda MD on 01/30/2025 10:25 PM Narrative 01/30/2025 10:25 PM CDT PROCEDURE: CT HEAD WO CONTRAST, CT FACIAL BONES WO CONTRAST, CT LUMBAR SPINE WO CONTRAST, CT THORACIC SPINE WO CONTRAST, CT CERVICAL SPINE WO CONTRAST, DATE/TIME OF EXAM: 01/30/2025 9:53 PM, LOCATION [facility] INDICATION: T14.90XA: Trauma ADDITIONAL CLINICAL INFORMATION: Ordering Provider Reason For Exam: Technologist Note: Additional: EXAMINATION: 1. Computed tomography (CT) of the head without contrast 2. CT of the maxillofacial bones, orbits, and paranasal sinuses without contrast 3. CT of the cervical spine without contrast 4. CT of the thoracic spine without contrast 5. CT of the lumbar spine without contrast TECHNIQUE: CT of the head, cervical spine, and maxillofacial bones, orbits, and paranasal sinuses was performed without contrast according to standard protocol. Reformatted axial, sagittal, and coronal images of the thoracic and lumbar spine were obtained by the technologist from a concurrently performed body CT and sent to the workstation for review. COMPARISON: No prior study is available for comparison at the time of this dictation. FINDINGS: Head: No acute intracranial hemorrhage or intra- or extra-axial fluid collections are identified. The ventricles are of normal size, shape, and morphology. The basal cisterns are patent. No mass effect or midline shift is seen. The huerta-white matter differentiation is normal. Periventricular white matter hypoattenuation is a nonspecific finding that may be indicative of chronic small vessel ischemic disease. There is atherosclerotic calcification of the carotid siphons. 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 No acute calvarial fracture is identified. A large right frontal/right lateral periorbital scalp hematoma. Maxillofacial: Right inferolateral periorbital and right frontal skin lacerations with small punctated radiopaque foreign bodies in the wound. The orbits including the globes, optic nerves, retrobulbar fat and extraocular muscles appear normal. The paranasal sinuses are clear. The hard palate, mandible, and temporomandibular joints appear normal. The mastoid air cells are clear. The patient is edentulous. Cervical spine: No soft tissue abnormality is identified. Postoperative changes of anterior cervical discectomy and fusion at C4-C6 without evidence of instrumentation failure. The alignment is near anatomic. The prevertebral soft tissue is normal in thickness. The bones are mildly osteopenic. Vertebral bodies are normal in height without evidence of acute fracture. Other than middle atlantoaxial joint osteoarthritis, the craniocervical junction appears normal. There is moderate to severe multilevel degenerative disc disease. The central canal is severely stenotic at multiple levels. There are varying degrees of moderate to severe multiple facet osteoarthritis. There are varying degrees of moderate to severe multilevel uncovertebral joint osteoarthritis with the same degree of neural foraminal stenosis at these levels. Thoracic spine: There is subsegmental atelectasis in the dependent portions of the lung bases. Mild dextroscoliosis. Slightly exaggerated thoracic kyphosis. The bones are mildly osteopenic. Vertebral bodies are normal in height without evidence of acute fracture. There is mild multilevel degenerative disc disease. Bridging syndesmophytes and ossification of the anterior longitudinal ligament at multiple levels suggest diffuse idiopathic skeletal hyperostosis (DISH). The central canal is patent. There are varying degrees of up to moderate facet osteoarthritis with the same degree of neural foraminal stenosis at these levels. Lumbar spine: Postoperative changes of laminectomies at C3-C5. There is atherosclerotic calcification of the abdominal aorta and its branch vessels. Multiple nonobstructing calculi in the kidneys bilaterally. Incompletely imaged diverticulosis of the colon without evidence of diverticulitis. Mild levoscoliosis. The bones are mildly osteopenic. Vertebral bodies are normal in height without evidence of acute fracture. There is up to severe multilevel degenerative disc disease. The central canal is moderately stenotic at multiple levels due to a combination of degenerative disc and joint disease and congenital shortening of pedicles. There are varying degrees of up to severe facet osteoarthritis with the same degree of neural foraminal stenosis at these levels. Procedure Note Sheldon Mosqueda MD - 01/30/2025 PROCEDURE: CT HEAD WO CONTRAST, CT FACIAL BONES WO CONTRAST, CT LUMBAR SPINE WO CONTRAST, CT THORACIC SPINE WO CONTRAST, CT CERVICAL SPINE WO CONTRAST, DATE/TIME OF EXAM: 01/30/2025 9:53 PM, LOCATION [facility] INDICATION: T14.90XA: Trauma ADDITIONAL CLINICAL INFORMATION: Ordering Provider Reason For Exam: Technologist Note: Additional: EXAMINATION: 1. Computed tomography (CT) of the head without contrast 2. CT of the maxillofacial bones, orbits, and paranasal sinuses without contrast 3. CT of the cervical spine without contrast 4. CT of the thoracic spine without contrast 5. CT of the lumbar spine without contrast TECHNIQUE: CT of the head, cervical spine, and maxillofacial bones,orbits, and paranasal sinuses was performed without contrast according tostandard protocol. Reformatted axial, sagittal, and coronal images of thethoracic and lumbar spine were obtained by the technologist from a concurrently performed body CT and sent to the workstation for review. COMPARISON: No prior study is available for comparison at the time ofthis dictation. FINDINGS: Head: No acute intracranial hemorrhage or intra- or extra-axial fluidcollections are identified. The ventricles are of normal size, shape, andmorphology. The basal cisterns are patent. No mass effect or midline shift is seen.The huerta-white matter differentiation is normal. Periventricular whitematter hypoattenuation is a nonspecific finding that may be indicative ofchronic small vessel ischemic disease. There is atherosclerotic calcification of the carotid siphons. A small chronic infarct in the left anteriorcoronal radiata. No acute calvarial fracture is identified. A large right frontal/right lateral periorbital scalp hematoma. Maxillofacial: Right inferolateral periorbital and right frontal skin lacerations with small punctated radiopaque foreign bodies in the wound. The orbits including the globes, optic nerves, retrobulbar fat and extraocular muscles appear normal. The paranasal sinuses are clear. The hard palate, mandible, and temporomandibular joints appear normal. The mastoid air cells are clear. The patient is edentulous. Cervical spine: No soft tissue abnormality is identified. Postoperative changes of anterior cervical discectomy and fusion atC4-C6 without evidence of instrumentation failure. The alignment is near anatomic. The prevertebral soft tissue is normalin thickness. The bones are mildly osteopenic. Vertebral bodies are normalin height without evidence of acute fracture. Other than middleatlantoaxial joint osteoarthritis, the craniocervical junction appears normal. Thereis moderate to severe multilevel degenerative disc disease. The centralcanal is severely stenotic at multiple levels. There are varying degrees of moderate to severe multiple facet osteoarthritis. There are varyingdegrees of moderate to severe multilevel uncovertebral joint osteoarthritis with the same degree of neural foraminal stenosis at these levels. Thoracic spine: There is subsegmental atelectasis in the dependent portions of the lung bases. Mild dextroscoliosis. Slightly exaggerated thoracic kyphosis. The bonesare mildly osteopenic. Vertebral bodies are normal in height withoutevidence of acute fracture. There is mild multilevel degenerative disc disease. Bridging syndesmophytes and ossification of the anterior longitudinal ligament at multiple levels suggest diffuse idiopathic skeletal hyperostosis (DISH). The central canal is patent. There are varying degrees of up to moderate facet osteoarthritis with the same degree of neural foraminal stenosis at these levels. Lumbar spine: Postoperative changes of laminectomies at C3-C5. There is atherosclerotic calcification of the abdominal aorta and its branch vessels. Multiple nonobstructing calculi in the kidneysbilaterally. Incompletely imaged diverticulosis of the colon without evidence of diverticulitis. Mild levoscoliosis. The bones are mildly osteopenic. Vertebral bodiesare normal in height without evidence of acute fracture. There is up tosevere multilevel degenerative disc disease. The central canal is moderately stenotic at multiple levels due to a combination of degenerative discand joint disease and congenital shortening of pedicles. There are varying degrees of up to severe facet osteoarthritis with the same degree ofneural foraminal stenosis at these levels. IMPRESSION: 1. No acute intracranial process. 2. No acute facial bone fractures identified. A large rightfrontal/right lateral periorbital scalp hematoma. Right inferolateral periorbital and right frontal skin lacerations with small punctated radiopaque foreign bodies in the wound. 3. No evidence of acute fracture in the cervical, thoracic, or lumbar spine. 4. Multiple chronic findings as detailed in the report. > Interpreting Provider: Sheldon Mosqueda MD on 01/30/2025 10:25 PM Simon Chairez MD CT ORDERABLES Final Resul t * (ABNORMAL) TEG 6 GLOBAL HEMOSTASIS W/ LYSIS (01/30/2025 9:48 PM CDT) Citrated Kaolin R (Reaction Time) 3.5(L) 4.6 - 9.1 min 01/30/2025 10:57 PM CDT [facility] Comment:CK R result below no rmal range. Consistent with hypercoagulable clotting factors. Citrated Kaolin LY30 (Lysis) 2.7(H) 0.0 - 2.6 % 01/30/2025 10:57 PM CDT [facility] Comment:CK LY30 above normal range. Consistent with hyperfibrinolysis. Citrated Functional Fibrinogen MA (Max Amplitude) 18.5 15.0 - 32.0 mm 01/30/2025 10:57 PM CDT [facility] Citrated RapidTEG MA (Max Amplitude) 58.7 52.0 - 70.0 mm 01/30/2025 10:57 PM CDT [facility] Blood BLOOD SPECIMEN / Unknown Venipuncture / Unknown 01/30/2025 9:48 PM CDT 01/30/2025 10:02 PM CDT us Simon Chairez MD LAB - HEMATOLOGY ORDERABLES Final Result [facility] [address] [place] [address], [facility] [phone] * TEG 6S PLATELET MAPPING (01/30/2025 9:48 PM CDT) TEGPLM (Max Amplitude) Koalin 58.3 53.0 - 68.0 mm 01/30/2025 11:07 PM CDT [facility] TEGPLM (Max Amplitude) ACTF 8.0 2.0 - 19.0 mm 01/30/2025 11:07 PM CDT [facility] TEGPLM (Max Amplitude) ADP 55.1 45.0 - 69.0 mm 01/30/2025 11:07 PM T [facility] TEGPLM (Max Amplitude) AA 58.7 51.0 - 71.0 mm 01/30/2025 11:07 PM T [facility] TEGPLM %Inhibition ADP 6.4 0.0 - 17.0 % 01/30/2025 11:07 PM [facility] TEGPLM %Inhibition AA 0.0 0.0 - 11.0 % 01/30/2025 11:07 PM [facility] TEGPLM %Aggregation ADP 93.6 83.0 - 100.0 % 01/30/2025 11:07 PM T [facility] TEGPLM % Aggregation AA 100.0 89.0 - 100.0 % 01/30/2025 11:07 PM T [facility] Blood BLOOD SPECIMEN / Unknown Venipuncture / Unknown 01/30/2025 9:48 PM CDT 01/30/2025 10:02 PM CDT us Simon Chairez MD LAB - HEMATOLOGY ORDERABLES Final Result Performing Organization Address [facility]/State/[facility] Co de Phone Number [facility] [address] [place] [address], [facility] [phone] * XR PELVIS 1 OR 2VW (01/30/2025 9:25 PM CDT) Anatomical Region Laterality Modality Pelvis Digital Radiogra phy 01/30/2025 10:1 1 PM CDT Narrative 01/31/2025 7:56 AM CDT PROCEDURE: XR PELVIS 1 OR 2VW, XR CHEST 1VW PORTABLE, DATE/TIME OF EXAM: 01/30/2025 9:25 PM, LOCATION [facility] INDICATION: T14.90XA: Trauma ADDITIONAL CLINICAL INFORMATION: Ordering Provider Reason For Exam: Technologist Note: Additional: COMPARISON: None. TECHNIQUE: Frontal radiograph of the chest. FINDINGS/IMPRESSION: Chest: Partially visualized bilateral shoulder of the posterior hardware. Mild bibasilar atelectasis. Hypoinflated lungs with elevation of the right hemidiaphragm. Opacity in the right upper lobe is likely related to azygous lobe is seen on subsequent CT. Otherwise, no focal consolidation, pleural effusion, or pneumothorax. The cardiac silhouette is enlarged. The mediastinal silhouette is normal. Bilateral shoulder arthroplasty. Pelvis: No displaced pelvic fractures are identified. The bilateral femoral heads are well-seated in their respective acetabula. No pubic symphysis diastases. The SI joints are normal. No soft tissue abnormality. Report dictated by Anusha Lowery MD, (Clinical Care Manager). > Dictated by Clinical Care Manager I, Dre Miranda have personally reviewed and interpreted this examination/study. > Interpreting Provider: Dre Miranda on 01/31/2025 7:56 AM Procedure Note Dre Kidd MD - 01/31/2025 PROCEDURE: XR PELVIS 1 OR 2VW, XR CHEST 1VW PORTABLE, DATE/TIME OF EXAM: 01/30/2025 9:25 PM, LOCATION [facility] INDICATION: T14.90XA: Trauma ADDITIONAL CLINICAL INFORMATION: Ordering Provider Reason For Exam: Technologist Note: Additional: COMPARISON: None. TECHNIQUE: Frontal radiograph of the chest. FINDINGS/IMPRESSION: Chest: Partially visualized bilateral shoulder of the posterior hardware. Mild bibasilar atelectasis. Hypoinflated lungs with elevation of theright hemidiaphragm. Opacity in the right upper lobe is likely related toazygous lobe is seen on subsequent CT. Otherwise, no focal consolidation,pleural effusion, or pneumothorax. The cardiac silhouette is enlarged. The mediastinal silhouette is normal. Bilateral shoulder arthroplasty. Pelvis: No displaced pelvic fractures are identified. The bilateral femoralheads are well-seated in their respective acetabula. No pubic symphysis diastases. The SI joints are normal. No soft tissue abnormality. Report dictated by Anusha Lowery MD, (Clinical Care Manager). > Dictated by Clinical Care Manager I, Dre Miranda have personally reviewed and interpreted this examination/study. > Interpreting Provider: Dre Miranda on 01/31/2025 7:56 AM Result Torey Chairez MD DIAGNOSTIC IMAGING ORDERABL ES Final Result * TYPE + SCREEN PANEL (01/30/2025 9:09 PM CDT) Antibody Screen NEG 10:32 PM CDT [facility] ABO Rh A POS 01/30/2025 10:32 PM CDT [facility] Blood Bank BLOOD SPECIMEN / Unknown Venipuncture / Unknown 01/30/2025 9:09 PM CDT 01/30/2025 9:52 PM CDT us Simon Chairez MD LAB - BLOOD BANK ORDERABLES Final Result Performing Organization Address City/[facility]/ZIP Co de Phone Number [facility] [address] [place] [address], [facility] [phone] * PT-INR (01/30/2025 9:09 PM CDT) PT 13.2 12.1 - 14.8 Seconds 01/30/2025 10:22 PM CDT [facility] INR 1.0 See Comment 01/30/2025 10:22 PM CDT [facility] Comment:The suggested therap eutic range for standard coumadin (warfarin) therapy is an INR of 2.0-3.0. For high-risk patients (Mechanical Mitral Valve Prosthesis, etc.), the suggested prophylactic therapeutic range is an INR of 2.5-3.5. Blood BLOOD SPECIMEN / Unknown Venipuncture / Unknown 01/30/2025 9:09 PM CDT 01/30/2025 9:47 PM CDT us Simon Chairez MD LAB - COAGULATION ORDERABLE S Final Result Performing Organization Address City/[facility]/ZIP Co de Phone Number [facility] [address] [place] [address], [facility] [phone] * (ABNORMAL) COMPREHENSIVE METABOLIC PANEL (01/30/2025 9:09 PM [facility]) BUN 15 7 - 26 mg/dL 01/30/2025 10:15 PM [facility] Creatinine 1.02 0.71 - 1.16 mg/dL 01/30/2025 10:15 PM [facility] Sodium 139 136 - 145 mmol/L 01/30/2025 10:15 PM [facility] Potassium 3.9 3.5 - 4.5 mmol/L 01/30/2025 10:15 PM [facility] Chloride 108(H) 98 - 107 mmol/L 01/30/2025 10:15 PM [facility] CO2 27 22 - 29 mmol/L 01/30/2025 10:15 PM [facility] Glucose 111(H) 70 - 99 mg/dL 01/30/2025 10:15 PM [facility] Calcium 8.7 8.4 - 10.2 mg/dL 01/30/2025 10:15 PM [facility] Protein Total 5.8(L) 6.0 - 8.3 g/dL 01/30/2025 10:15 PM [facility] Albumin 3.7 3.4 - 5.0 g/dL 01/30/2025 10:15 PM [facility] Bilirubin Total 0.8 0.2 - 1.2 mg/dL 01/30/2025 10:15 PM [facility] Alkaline Phosphatase 62 40 - 150 U/L 01/30/2025 10:15 PM [facility] ALT 32 5 - 55 U/L 01/30/2025 10:15 PM [facility] AST 29 5 - 34 U/L 01/30/2025 10:15 PM [facility] Anion Gap 4(L) 6 - 16 01/30/2025 10:15 PM [facility] BUN/Creatinine Ratio 15 7 - 23 01/30/2025 10:15 PM [facility] Osmolality Calculated 290 275 - 295 mOsm/kg 01/30/2025 10:15 PM CDT [facility] Albumin/Globulin Ratio 1.8 1.1 - 2.3 01/30/2025 10:15 PM CDT [facility] eGFR by CKD-EPI 82(L) >=90 mL/min/1.7 3 m2 01/30/2025 10:15 PM CDT [facility] Comment:Estimated Glomerular Filtration Rate (eGFR) calculated using the CKD-EPI Creatinine Equation (2020), per the National Kidney Foundation and [place] [employer]ph[employer] recommendations. Blood BLOOD SPECIMEN / Unknown Venipuncture / Unknown 01/30/2025 9:09 PM CDT 01/30/2025 9:49 PM CDT Simon Chairez MD LAB - CHEMISTRY ORDERABLES Final Result Performing Organization Address City/[facility]/ZIP Co de Phone Number [address] [address], [place] [phone] * LIPASE BLOOD (01/30/2025 9:09 PM CDT) Lipase 31 8 - 78 U/L 01/30/2025 10:15 PM CDT [facility] Blood BLOOD SPECIMEN / Unknown Venipuncture / Unknown 01/30/2025 9:09 PM CDT 01/30/2025 9:49 PM CDT Narrative [facility] - 01/30/2025 10:15 PM CDT Lipase results from the Wish Alinity analyzer may not be comparable with other methodologies. Simon Chairez MD LAB - CHEMISTRY ORDERABLES Final Result [address] [address], [place] [phone] * ALCOHOL ETHYL BLOOD (01/30/2025 9:09 PM CDT) Ethanol (mg/dL) <10 <10 mg/dL 10:15 PM CDT [facility] Ethanol Calculated (g/dL) <0.010 <=0.010 g/dL 01/30/2025 10:15 PM CDT [facility] Blood BLOOD SPECIMEN / Unknown Venipuncture / Unknown 01/30/2025 9:09 PM CDT 01/30/2025 9:49 PM CDT Narrative [facility] - 01/30/2025 10:15 PM CDT Ethanol Interp <10: None Detected. Depression of PAN SHOVER: >100 mg/dl Potentially Critical: >250 mg/dl Potentially Fatal >400 mg/dl Ethanol in the patient's blood will contribute to the osmolar gap. Ethanol's contribution to the osmolar gap can be estimated by dividing the concentration of ethanol in mg/dL by 4.6. This test is for clinical use only and does not equal a CIRILO for legal purposes. us Simon Chairez MD LAB - CHEMISTRY ORDERABLES Final Result [facility] [address] [place] [address], [facility] [phone] from Last 3 Months Insurance MEDICAID - [place] [facility] Advance Directives * Full Code (Latest Code Status on File) Date Activated Date Inactivated Comments 02/04/2025 6:11 PM 02/12/2025 4:34 PM * Full Code Date Activated Date Inactivated Comments 01/30/2025 11:26 PM 02/04/2025 6:28 PM * Full Code Date Activated Date Inactivated Comments 03/30/2024 11:00 AM 03/31/2024 5:48 PM * Full Code Date Activated Date Inactivated Comments 07/25/2023 10:14 PM 08/06/2023 3:20 PM Care Teams 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
[2025-02-24 20:36] VITALS: BP 128/92; PULSE 92; RESP 16; TEMP 37.5; O2SAT 97
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
== END 2025-02-25 01:42 | disposition home or self-care (01) ==
PROVIDERS: Emergency Provider Physician Assistant; PCP Internal Medicine
DX: S89.102D Unspecified physeal fracture of lower end of left tibia, subsequent encounter for fracture with routine healing (principal); S89.302D Unspecified physeal fracture of lower end of left fibula, subsequent encounter for fracture with routine healing; V29.99XD Rider (driver) (passenger) of other motorcycle injured in unspecified traffic accident, subsequent encounter
CPT/HCPCS: 29515; 73590; 99283; 99284